=== PATIENT | female | born 2000 | race Caucasian/White ===

== ENCOUNTER 2024-08-22 10:10 | Emergency (ER) | payer OTHER, SELFPAY ==
[2024-08-22 10:26] VITALS: BP 149/94; PULSE 117; RESP 16; TEMP 36.5; O2SAT 100
--- OUTSIDE RECORDS SUMMARY | 2024-08-22 10:42 | XMS_ITS | Clinical Summary ---
Author Organization [facility] Address [address] [place] [address] Phone Care Team Providers Care Ostomy Nurse Name Role Phone TYSHAWN CROSS Primary Care Provider [phone] REYNA RONQUILLO MD Unavailable [phone] Reason for Visit and Chief Complaint The Chief Complaint is: WWE, no c/o, no new partners Problems Includes: Problems addressed during this encounter and other active Problems All Visits Onset Date Resolved Date Provider Condition S tatus Psoriasis 12/09/2020 MICHAEL CHRISTIANSON [facility]- Act linda Last Documented On 1 10:11AM ; [facility] Plan of Treatment - Clinical summary provided to patient - Last Documented On 12/12/2021 10:43AM ; [facility] Instructions to patient Instructions for patient : B reast Self Exam discussed Last Documented On 2 10:25AM ; [facility] Lose weight Last Documented On 2 10:25AM ; [facility] Gardasil information given a nd series encouraged Series completed! Last Documented On 2 10:25AM ; [facility] Safe sex counseling Last Documented On 2 10:25AM ; [facility] Education and Decision Aids were provided during visit for: Patient Education: Daily isidoro cium and vitamin D Last Documented On 2 10:25AM ; [facility] Patient Education: weight be aring exercise Last Documented On 2 10:25AM ; [facility] Assessments Includes: Assessments from this encounter Findings - NORMAL FEMALE EXAM [Z01.419 - Encounter for gynecological examination (general) (routine) without abnormal findings] - Last Documented On 12/12/2021 10:43AM ; [facility] Instructions Includes: Instructions from this encounter Instructions to patient Instructions for patient : B reast Self Exam discussed Last Documented On 2 10:25AM ; [facility] Lose weight Last Documented On 2 10:25AM ; [facility] Gardasil information given a nd series encouraged Series completed! Last Documented On 2 10:25AM ; [facility] Safe sex counseling Last Documented On 2 10:25AM ; [facility] Education and Decision Aids were provided during visit for: Patient Education: Daily isidoro cium and vitamin D Last Documented On 2 10:25AM ; [facility] Patient Education: weight be aring exercise Last Documented On 2 10:25AM ; [facility] Medical Equipment - Implanted Devices Includes: Current Devices No Medical Equipment Recorded Medications Includes: Medications discussed during this encounter and other current Medications New / Renewed during this visit MICHAEL KO on 12/12/2021 Seasonique 0.15-0.03 &0.01 MG Oral Tablet Provider: MICHAEL Ozuna 84 day supply: 84 tablet, 3 refills Diagnosis: One tablet daily Pharmacy: [facility] [address], [address] - Last Documented On 3 2:59PM By MICHAEL KO ; [facility] Current Medications (continue as prescribed) Seasonique 0.15-0.03 &0.01 MG Oral Tablet 01/02/2023 Provider: MICHAEL KO Diagnosis: One tablet daily Last Documented On 3 3:04PM By MICHAEL KO ; [facility] Past Medications on file Diflucan 150MG Oral Tablet 10/02/2016 - 10/03/2016 Pro vider: MICHAEL A CHRISTIANSON WHNP-BC Diagnosis: One tablet daily Last Documented On 7 2:48PM By MICHAEL JACKSON-BC ; [facility] Medications Administered Includes: Administered Medications from this encounter No Administered Medications Recorded Vital Signs Includes: Vital Signs from this encounter Vital Name 12/12/2021 10:26A Blood Pressure Sitting L 120/70 BP Cuff Size Regular Temp-Temporal 98.1 Height (in) 67 Weight (lb) 181 Body Mass Index (kg/m2) 28.3 Body Surface Area (m2) 1.9 Last Documented: On 12/12/2021 10:28A M ; [facility] Results Includes: Results discussed during this encounter No Results Recorded For Specified Dates History of Present Illness Includes: History of Present Illness from this encounter ERLIN LAZO is a 21 year old female. - Allergy list reviewed - Medication list reviewed - Primary Care Provider: Social History Description Last Updated Alcohol use 12/12/2021 Last Documented On 2 10:43AM ; [facility] In monogamous relationship 12/12/2021 Last Documented On 2 10:43AM ; [facility] Not using drugs 12/12/2021 Last Documented On 2 10:43AM ; [facility] Sexually active with 1 partners in the l ast year 12/12/2021 Last Documented On 2 10:43AM ; [facility] Smoking status : Never smoker 12/12/2021 Last Documented On 2 10:43AM ; [facility] Social history changed scott 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 12/12/2021 Last Documented On 2 10:43AM ; [facility] Procedures and Surgical History Includes: Procedures from this encounter Procedures Code Diagnosis Performing Provider Service L ocation Service Date low fat diet Last Documented On 2 10:25AM ; [facility] use of tobacco assessment performed 1000F Last Documented On 2 10:29AM ; [facility] review of medications documented 1160F Last Documented On 2 10:29AM ; [facility] history of cervical Pap smear 12/09/2020 [id number] Last Documented On 2 10:29AM ; [facility] test was negative Last Documented On 2 10:30AM ; [facility] Chlamydia trachomatis culture was perfor med Last Documented On 2 10:25AM ; [facility] Neisseria gonorrhea culture was performe d Last Documented On 2 10:25AM ; [facility] Cervical Pap Smear performed Q0091 Last Documented On 2 10:25AM ; [facility] Medical History Includes: Medical History addressed during this encounter Description Last Updated Contraception: Seasonique 12/12/2021 Last Documented On 2 10:43AM ; [facility] Last pap smear date 12/09/2020 12/12/2021 Last Documented On 2 10:43AM ; [facility] LMP: 11/12/2021 12/12/2021 Last Documented On 2 10:43AM ; [facility] History of cervical Pap smear 11/27/2019 12/12/2021 Last Documented On 2 10:43AM ; [facility] No recent change in medical history 11/27 Last Documented On 2 10:43AM ; [facility] Result: normal 12/12/2021 Last Documented On 2 10:43AM ; [facility] Sexually active 12/12/2021 Last Documented On 2 10:43AM ; [facility] Family History Includes: Family History addressed during this encounter No Family History Recorded Review of Systems Includes: Review of Systems from this encounter Gastrointestinal: No pelvic pain. Genitourinary: No menorrhagia. No dysmenorrhea and no bleeding between periods. No vaginal discharge. Mental Status Includes: Mental Status from this encounter No Mental Status Recorded Functional Status Includes: Functional Status from this encounter No Functional Status Recorded Physical Exam Includes: Physical Exam from this encounter Allergies Includes: Active Allergies No Known Allergies Encounters Encounter Provider Location Date Check-In Time Check-Out Time Diagnosis WELL WOMAN - ESTABLISHED PT MICHAEL CHRISTIANSON [facility] 12/13/19 22 10:23AM 10:44AM Normal Female Exam Insurance Includes: Active Insurance Policies Plan Name Member ID Group # Subscriber Relationship Effect linda Dates 1 - [facility] [id number] PATRICA LAZO Self Clinical Notes Includes: Clinical Notes from this encounter No Clinical Notes Recorded
--- OUTSIDE RECORDS SUMMARY | 2024-08-22 10:42 | XMS_ITS ---
Author Organization [facility] Address [address] [place] [address] Phone Care Team Providers Care Clerical Production Worker Name Role Phone TYSHAWN CROSS Primary Care Provider [phone] REYNA RONQUILLO MD Unavailable [phone] Problems Includes: Active, inactive, and resolved Problems All Visits Onset Date Resolved Date Provider Condition S tatus Psoriasis 12/09/2020 MICHAEL CHRISTIANSON NP-BC Act linda Last Documented On 1 10:11AM ; [facility] Plan of Treatment Findings Encounter Date Ordered Clinical summary pro vided to patient WELL WOMAN - ESTABLISHED PT with MICHAEL CHRISTIANSON WHNP-BC 01/02/2023 Last Documented On 3 3:00PM ; [facility] Ordered Clinical summary pro vided to patient WELL WOMAN - ESTABLISHED PT with MICHAELCOLLIN CHRISTIANSON WHNP-BC 12/12/2021 Last Documented On 2 10:43AM ; [facility] Ordered Clinical summary pro vided to patient WELL WOMAN - ESTABLISHED PT with MICHAELCOLLIN CHRISTIANSON WHNP-BC 12/09/2020 Last Documented On 1 10:11AM ; [facility] Ordered Clinical summary pro vided to patient CONVEYOR WEIGHER OPERATOR EXAM with MICHAEL CHRISTIANSON WHNP-BC 11/27/2019 Last Documented On 0 8:14AM ; [facility] Ordered Clinical summary pro vided to patient CONVEYOR WEIGHER OPERATOR EXAM with MICHAEL CHRISTIANSON NP- 11/25/2018 Last Documented On 9 10:31AM ; [facility] Ordered Clinical summary pro vided to patient CONVEYOR WEIGHER OPERATOR EXAM with MICHAEL CHRISTIANSON NP-BC 10/08/2017 Last Documented On 8 3:42PM ; [facility] Ordered Clinical summary pro vided to patient PELVIC EXAM with MICHAEL CHRISTIANSON NP-BC 01/08/2017 Last Documented On 7 3:46PM ; [facility] ER/pain precautions reviewed NEW CONVEYOR WEIGHER OPERATOR EXAM with Laith CHRISTIANSON NP- 10/02/2016 Last Documented On 7 2:37PM ; [facility] Ordered Clinical summary pro vided to patient NEW CONVEYOR WEIGHER OPERATOR EXAM with MICHAEL CHRISTIANSON NP- 10/02/2016 Last Documented On 7 2:37PM ; [facility] Instructions to patient Instructions for patient : B reast Self Exam discussed Last Documented On 3 2:40PM ; [facility] Lose weight Last Documented On 3 2:41PM ; [facility] Gardasil information given a nd series encouraged Series completed! Last Documented On 3 2:41PM ; [facility] Safe sex counseling Last Documented On 3 2:41PM ; [facility] Instructions for patient : B reast Self Exam discussed Last Documented On 2 10:25AM ; [facility] Lose weight Last Documented On 2 10:25AM ; [facility] Gardasil information given a nd series encouraged Series completed! Last Documented On 2 10:25AM ; [facility] Safe sex counseling Last Documented On 2 10:25AM ; [facility] Instructions for patient : B reast Self Exam discussed Last Documented On 1 9:58AM ; [facility] Lose weight Last Documented On 1 9:59AM ; [facility] Gardasil information given a nd series encouraged Series completed! Last Documented On 1 9:59AM ; [facility] Safe sex counseling Last Documented On 1 9:59AM ; [facility] Instructions for patient : B reast Self Exam discussed Last Documented On 0 7:57AM ; [facility] Gardasil information given a nd series encouraged Series completed! Last Documented On 0 7:58AM ; [facility] Safe sex counseling Last Documented On 0 7:58AM ; [facility] Instructions for patient : B reast Self Exam discussed Last Documented On 9 10:24AM ; [facility] Lose weight Last Documented On 9 10:25AM ; [facility] Gardasil information given a nd series encouraged Series completed! Last Documented On 9 10:25AM ; [facility] Safe sex counseling Last Documented On 9 10:25AM ; [facility] Instructions for patient : B reast Self Exam discussed Last Documented On 8 3:32PM ; [facility] Gardasil information given a nd series encouraged Series completed with peds! Last Documented On 8 3:42PM ; [facility] Safe sex counseling Last Documented On 8 3:33PM ; [facility] Safe sex counseling Last Documented On 7 3:45PM ; [facility] Instructions for patient : B reast Self Exam discussed Last Documented On 7 12:43PM ; [facility] Instructions for patient ER if bleeding through reg. sized pad/tampon < 1 hour Last Documented On 7 12:50PM ; [facility] Instructions for patient : p atient is to keep a menstrual diary to help with further evaluation and treatment Last Documented On 7 12:50PM ; [facility] Instructions for patient ER if dizzy, vomiting or light-headed due to heavy bleeding Last Documented On 7 12:50PM ; [facility] Gardasil information given a nd series encouraged Last Documented On 7 12:44PM ; [facility] Safe sex counseling Last Documented On 7 12:44PM ; [facility] Education and Decision Aids were provided during visit for: Patient Education: Daily isidoro cium and vitamin D Last Documented On 3 2:40PM ; [facility] Patient Education: weight be aring exercise Last Documented On 3 2:40PM ; [facility] Patient Education: Daily isidoro cium and vitamin D Last Documented On 2 10:25AM ; [facility] Patient Education: weight be aring exercise Last Documented On 2 10:25AM ; [facility] Patient Education: Daily isidoro cium and vitamin D Last Documented On 1 9:58AM ; [facility] Patient Education: weight be aring exercise Last Documented On 1 9:58AM ; [facility] Patient Education: Daily isidoro cium and vitamin D Last Documented On 0 7:57AM ; [facility] Patient Education: weight be aring exercise Last Documented On 0 7:57AM ; [facility] Patient Education: Daily isidoro cium and vitamin D Last Documented On 9 10:24AM ; [facility] Patient Education: weight be aring exercise Last Documented On 9 10:24AM ; [facility] Patient Education: Daily isidoro cium and vitamin D Last Documented On 8 3:32PM ; [facility] Patient Education: weight be aring exercise Last Documented On 8 3:32PM ; [facility] Patient counseling : Use of oral contraceptives discussed in detail including rare occurrence of heart attack, stroke, and leg clots. Patient understands that smoking increases the risk of serious side effects with any steroid-based contraceptive method Last Documented On 7 3:46PM ; [facility] Patient Education: Daily isidoro cium and vitamin D Last Documented On 7 12:43PM ; [facility] Patient Education: weight be aring exercise Last Documented On 7 12:43PM ; [facility] Candidiasis Vulvovaginitis I nformation Sheet Given Last Documented On 7 2:36PM ; [facility] control consent review ed and signed Last Documented On 7 1:14PM ; [facility] Assessments Includes: Assessments for all patient encounters Findings Encounter Date NORMAL FEMALE EXAM WELL WOMAN - ESTABLISHED PT w jose elias CHRISTIANSON [facility] 01/02/2023 Last Documented On 3 3:00PM ; [facility] NORMAL FEMALE EXAM WELL WOMAN - ESTABLISHED PT w ith MICHAEL CHRISTIANSON [facility] 12/12/2021 Last Documented On 2 10:43AM ; [facility] NORMAL FEMALE EXAM WELL WOMAN - ESTABLISHED PT w ith MICHAEL CHRISTIANSON [facility] 12/09/2020 Last Documented On 1 10:11AM ; [facility] NORMAL FEMALE EXAM CONVEYOR WEIGHER OPERATOR EXAM with MICHAEL Garcia [facility] 11/27/2019 Last Documented On 0 8:14AM ; [facility] NORMAL FEMALE EXAM CONVEYOR WEIGHER OPERATOR EXAM with MICHAEL Garcia [facility] 11/25/2018 Last Documented On 9 10:31AM ; [facility] NORMAL FEMALE EXAM CONVEYOR WEIGHER OPERATOR EXAM with MICHAEL Garcia [facility] 10/08/2017 Last Documented On 8 3:42PM ; [facility] Menorrhagia NEW CONVEYOR WEIGHER OPERATOR EXAM with MICHAEL CHRISTIANSON [facility] 10/02/2016 Last Documented On 7 2:37PM ; [facility] NORMAL FEMALE EXAM NEW CONVEYOR WEIGHER OPERATOR EXAM with MICHAEL SAUER [facility]- 10/02/2016 Last Documented On 7 2:37PM ; [facility] Instructions Includes: Instructions for all patient encounters Instructions to patient Instructions for patient : B reast Self Exam discussed Last Documented On 3 2:40PM ; [facility] Lose weight Last Documented On 3 2:41PM ; [facility] Gardasil information given a nd series encouraged Series completed! Last Documented On 3 2:41PM ; [facility] Safe sex counseling Last Documented On 3 2:41PM ; [facility] Instructions for patient : B reast Self Exam discussed Last Documented On 2 10:25AM ; [facility] Lose weight Last Documented On 2 10:25AM ; [facility] Gardasil information given a nd series encouraged Series completed! Last Documented On 2 10:25AM ; [facility] Safe sex counseling Last Documented On 2 10:25AM ; [facility] Instructions for patient : B reast Self Exam discussed Last Documented On 1 9:58AM ; [facility] Lose weight Last Documented On 1 9:59AM ; [facility] Gardasil information given a nd series encouraged Series completed! Last Documented On 1 9:59AM ; [facility] Safe sex counseling Last Documented On 1 9:59AM ; [facility] Instructions for patient : B reast Self Exam discussed Last Documented On 0 7:57AM ; [facility] Gardasil information given a nd series encouraged Series completed! Last Documented On 0 7:58AM ; [facility] Safe sex counseling Last Documented On 0 7:58AM ; [facility] Instructions for patient : B reast Self Exam discussed Last Documented On 9 10:24AM ; [facility] Lose weight Last Documented On 9 10:25AM ; [facility] Gardasil information given a nd series encouraged Series completed! Last Documented On 9 10:25AM ; [facility] Safe sex counseling Last Documented On 9 10:25AM ; [facility] Instructions for patient : B reast Self Exam discussed Last Documented On 8 3:32PM ; [facility] Gardasil information given a nd series encouraged Series completed with peds! Last Documented On 8 3:42PM ; [facility] Safe sex counseling Last Documented On 8 3:33PM ; [facility] Safe sex counseling Last Documented On 7 3:45PM ; [facility] Instructions for patient : B reast Self Exam discussed Last Documented On 7 12:43PM ; [facility] Instructions for patient ER if bleeding through reg. sized pad/tampon < 1 hour Last Documented On 7 12:50PM ; [facility] Instructions for patient : p atient is to keep a menstrual diary to help with further evaluation and treatment Last Documented On 7 12:50PM ; [facility] Instructions for patient ER if dizzy, vomiting or light-headed due to heavy bleeding Last Documented On 7 12:50PM ; [facility] Gardasil information given a nd series encouraged Last Documented On 7 12:44PM ; [facility] Safe sex counseling Last Documented On 7 12:44PM ; [facility] Education and Decision Aids were provided during visit for: Patient Education: Daily isidoro cium and vitamin D Last Documented On 3 2:40PM ; [facility] Patient Education: weight be aring exercise Last Documented On 3 2:40PM ; [facility] Patient Education: Daily isidoro cium and vitamin D Last Documented On 2 10:25AM ; [facility] Patient Education: weight be aring exercise Last Documented On 2 10:25AM ; [facility] Patient Education: Daily isidoro cium and vitamin D Last Documented On 1 9:58AM ; [facility] Patient Education: weight be aring exercise Last Documented On 1 9:58AM ; [facility] Patient Education: Daily isidoro cium and vitamin D Last Documented On 0 7:57AM ; [facility] Patient Education: weight be aring exercise Last Documented On 0 7:57AM ; [facility] Patient Education: Daily isidoro cium and vitamin D Last Documented On 9 10:24AM ; [facility] Patient Education: weight be aring exercise Last Documented On 9 10:24AM ; [facility] Patient Education: Daily isidoro cium and vitamin D Last Documented On 8 3:32PM ; [facility] Patient Education: weight be aring exercise Last Documented On 8 3:32PM ; [facility] Patient counseling : Use of oral contraceptives discussed in detail including rare occurrence of heart attack, stroke, and leg clots. Patient understands that smoking increases the risk of serious side effects with any steroid-based contraceptive method Last Documented On 7 3:46PM ; [facility] Patient Education: Daily isidoro cium and vitamin D Last Documented On 7 12:43PM ; [facility] Patient Education: weight be aring exercise Last Documented On 7 12:43PM ; [facility] Candidiasis Vulvovaginitis I nformation Sheet Given Last Documented On 7 2:36PM ; [facility] control consent review ed and signed Last Documented On 7 1:14PM ; [facility] Medical Equipment - Implanted Devices Includes: Current and historical Devices No Medical Equipment Recorded Medications Includes: Current and historical Medications Current Medications (continue as prescribed) Seasonique 0.15-0.03 &0.01 MG Oral Tablet 01/02/2023 Provider: MICHAEL RUGGIEROBC Diagnosis: One tablet daily Last Documented On 3 3:04PM By MICHAEL KO ; [facility] Past Medications on file Seasonique 0.15-0.03 &0.01 M G Oral Tablet 12/12/2021 - 01/02/2023 Provider: MICHAEL CHRISTIANSON ROOFING MACHINE TENDER-BC Diagnosis: One tablet daily Last Documented On 3 2:59PM By MICHAEL KO ; [facility] Aviane 0.1-20 MG-MCG Oral Tablet 12/09/2020 - 12/09/2020 Provider: MICHAEL CHRISTIANSON ROOFING MACHINE TENDER-BC Diagnosis: One tablet daily Last Documented On 1 10:09AM By MICHAEL KO ; [facility] Seasonique 0.15-0.03 &0.01 M G Oral Tablet 12/09/2020 - 12/12/2021 Provider: MICHAEL DAVIS ROOFING MACHINE TENDER-BC Diagnosis: One tablet daily Last Documented On 2 10:42AM By MICHAEL KO ; [facility] Aviane 0.1-20 MG-MCG Oral Tablet 11/27/2019 - 12/09/2020 Provider: MICHAEL DAVIS ROOFING MACHINE TENDER-BC Diagnosis: One tablet daily Last Documented On 1 10:00AM By MICHAEL KO ; [facility] Aviane 0.1-20MG-MCG Oral Tablet 11/25/2018 - 11/27/2019 Provider: MICHAEL DAVIS ROOFING MACHINE TENDER-BC Diagnosis: One tablet daily Last Documented On 0 8:06AM By MICHAEL KO ; [facility] Aviane 0.1-20MG-MCG Oral Tablet 10/18/2018 - 11/25/2018 Provider: MICHAEL SIDHU Diagnosis: One tablet daily Last Documented On 9 10:30AM By MICHAEL KO ; [facility] Aviane 0.1-20MG-MCG Oral Tablet 10/08/2017 - 10/18/2018 Provider: MICHAEL DAVIS NP-BC Diagnosis: One tablet daily Last Documented On 9 12:19PM By MICHAEL KO ; [facility] Aviane 0.1-20MG-MCG Oral Tablet 01/08/2017 - 10/08/2017 Provider: MICHAEL DAVIS NP-JENS Diagnosis: One tablet daily Last Documented On 8 3:42PM By MICHAEL KO ; [facility] Diflucan 150MG Oral Tablet 10/02/2016 - 10/03/2016 Pro vider: MICHAEL KO Diagnosis: One tablet daily Last Documented On 7 2:48PM By MICHAEL KO ; [facility] Aviane 0.1-20MG-MCG Oral Tablet 10/02/2016 - 01/08/2017 Provider: MICHAEL SIDHU Diagnosis: One tablet daily Last Documented On 7 3:47PM By MICHAEL KO ; [facility] Medications Administered Includes: Administered Medications in patient's chart No Administered Medications Recorded Results Includes: Results from 08/22/2023 through 08/22/2024 No Results Recorded For Specified Dates History of Present Illness History of Present Illness not supported for this document type No History of Present Illness Recorded Social History Description Last Updated 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 Seasoni que 01/02/2023 Last Documented On 3 3:00PM ; [facility] Non-smoker 11/27/2019 Last Documented On 0 8:14AM ; [facility] Smoking Status Unknown Medical History Includes: Medical History in patient's chart Description Last Updated Contraception: Seasonique 12/12/2021 Last Documented On 2 10:43AM ; [facility] Sexually active 12/12/2021 Last Documented On 2 10:43AM ; [facility] Family History Includes: Family History in patient's chart No Family History Recorded Review of Systems Review of Systems not supported for this document type No Review of Systems Recorded Mental Status No Mental Status Recorded Functional Status No Functional Status Recorded Physical Exam Physical Exam not supported for this document type No Physical Exam Recorded Allergies Includes: Active, inactive, and resolved Allergies No Known Allergies Insurance Includes: Active Insurance Policies Plan Name Member ID Group # Subscriber Relationship Effect linda Dates 1 - [facility] [id number] PATRICA LAZO Self Clinical Notes Includes: Signed Clinical Notes starting from 08/18/2022 No Clinical Notes Recorded
--- OUTSIDE RECORDS SUMMARY | 2024-08-22 10:42 | XMS_ITS ---
Care Plan - [facility] Created on: August 22, 2024 PATRICA LAZO : 2000 Sex: Female Author Organization [facility] Address [address] [place] [address] Phone Care Team Providers Care Network Project Manager Name Role Phone TYSHAWN CROSS Primary Care Provider [phone] REYNA RONQUILLO MD Unavailable [phone]
--- OUTSIDE RECORDS SUMMARY | 2024-08-22 10:42 | XMS_ITS | Clinical Summary ---
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 Problems Includes: Problems addressed during this encounter and other active Problems All Visits Onset Date Resolved Date Provider Condition S tatus Psoriasis 12/09/2020 MICHAEL KO Act linda Last Documented On 1 10:11AM ; [facility] Plan of Treatment No Plan of Treatment Recorded Assessments Includes: Assessments from this encounter No Assessments Recorded Medical Equipment - Implanted Devices Includes: Current Devices No Medical Equipment Recorded Medications Includes: Medications discussed during this encounter and other current Medications Current Medications (continue as prescribed) Seasonique 0.15-0.03 &0.01 MG Oral Tablet 01/02/2023 Provider: MICHAEL KO Diagnosis: One tablet daily Last Documented On 3 3:04PM By MICHAEL KO ; [facility] Medications Administered Includes: Administered Medications from this encounter No Administered Medications Recorded Results Includes: Results discussed during this encounter No Results Recorded For Specified Dates History of Present Illness Includes: History of Present Illness from this encounter No History of Present Illness Recorded Social History No Social History Recorded - Smoking Status Unknown Medical History Includes: Medical History addressed during this encounter No Medical History Recorded Family History Includes: Family History addressed during this encounter No Family History Recorded Review of Systems Includes: Review of Systems from this encounter No Review of Systems Recorded Mental Status Includes: Mental Status from this encounter No Mental Status Recorded Functional Status Includes: Functional Status from this encounter No Functional Status Recorded Physical Exam Includes: Physical Exam from this encounter No Physical Exam Recorded Allergies Includes: Active Allergies No Known Allergies Insurance Includes: Active Insurance Policies Plan Name Member ID Group # Subscriber Relationship Effect linda Dates 1 - [facility] [id number] PATRICA LAZO Self Clinical Notes Includes: Clinical Notes from this encounter No Clinical Notes Recorded
--- OUTSIDE RECORDS SUMMARY | 2024-08-22 10:42 | XMS_ITS | Clinical Summary ---
Author Organization [facility] Address [address] [place] [address] Phone Care Team Providers Care Band Tumbler Name Role Phone TYSHAWN CROSS Primary Care Provider [phone] REYNA RONQUILLO MD Unavailable [phone] Reason for Visit and Chief Complaint The Chief Complaint is: WWE, would like to talk about switching control. her pills are not helping with her cramps but cycles are regular. No new partners Problems Includes: Problems addressed during this encounter and other active Problems Current Visit Onset Date Resolved Date Provider Hank n Status Psoriasis 12/09/2020 MICHAEL [facility]SON [facility]- Act linda Last Documented On 1 10:11AM ; [facility] Plan of Treatment - Clinical summary provided to patient - Last Documented On 12/09/2020 10:11AM ; [facility] Instructions to patient Instructions for patient : B reast Self Exam discussed Last Documented On 1 9:58AM ; [facility] Lose weight Last Documented On 1 9:59AM ; [facility] Gardasil information given a nd series encouraged Series completed! Last Documented On 1 9:59AM ; [facility] Safe sex counseling Last Documented On 1 9:59AM ; [facility] Education and Decision Aids were provided during visit for: Patient Education: Daily isidoro cium and vitamin D Last Documented On 1 9:58AM ; [facility] Patient Education: weight be aring exercise Last Documented On 1 9:58AM ; [facility] Assessments Includes: Assessments from this encounter Findings - NORMAL FEMALE EXAM [Z01.419 - Encounter for gynecological examination (general) (routine) without abnormal findings] - Last Documented On 12/09/2020 10:11AM ; [facility] Instructions Includes: Instructions from this encounter Instructions to patient Instructions for patient : B reast Self Exam discussed Last Documented On 1 9:58AM ; [facility] Lose weight Last Documented On 1 9:59AM ; [facility] Gardasil information given a nd series encouraged Series completed! Last Documented On 1 9:59AM ; [facility] Safe sex counseling Last Documented On 9:59AM ; [facility] Education and Decision Aids were provided during visit for: Patient Education: Daily isidoro cium and vitamin D Last Documented On 1 9:58AM ; [facility] Patient Education: weight be aring exercise Last Documented On 9:58AM ; [facility] Medical Equipment - Implanted Devices Includes: Current Devices No Medical Equipment Recorded Medications Includes: Medications discussed during this encounter and other current Medications Discontinued / Stopped on this date MICHAEL KO on 12/09/2020 Aviane 0.1-20 MG-MCG Oral Tablet Provider : MICHAEL KO Diagnosis: Last Documented On 1 10:09AM By MICHAEL KO ; [facility] New / Renewed during this visit MICHAEL KO on 12/09/2020 Seasonique 0.15-0.03 &0.01 MG Oral Tablet Provider: MICHAEL Ozuna 84 day supply: 84 tablet, 3 refills Diagnosis: One tablet daily Pharmacy: [facility] [address], [address] - Last Documented On 2 10:42AM By MICHAEL KO ; [facility] Current Medications (continue as prescribed) Seasonique 0.15-0.03 &0.01 MG Oral Tablet 01/02/2023 Provider: MICHAEL KO Diagnosis: One tablet daily Last Documented On 3 3:04PM By MICHAEL KO ; [facility] Past Medications on file Diflucan 150MG Oral Tablet 10/02/2016 - 10/03/2016 Pro vider: MICHAEL KO Diagnosis: One tablet daily Last Documented On 7 2:48PM By MICHAEL KO ; [facility] Medications Administered Includes: Administered Medications from this encounter No Administered Medications Recorded Vital Signs Includes: Vital Signs from this encounter Vital Name 12/09/2020 09:57A Blood Pressure Sitting L 122/76 BP Cuff Size Regular Temp-Oral (F) 98.1 Height (in) 67 Weight (lb) 177 Body Mass Index (kg/m2) 27.7 Body Surface Area (m2) 1.9 Last Documented: On 12/09/2020 10:00A M ; [facility] Results Includes: Results discussed during this encounter No Results Recorded For Specified Dates History of Present Illness Includes: History of Present Illness from this encounter ERLIN LAZO is a 20 year old female. 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 12/09/2020 Last Documented On 1 10:11AM ; [facility] Alcohol use 12/09/2020 Last Documented On 1 10:11AM ; [facility] In monogamous relationship 12/09/2020 Last Documented On 1 10:11AM ; [facility] Not using drugs 12/09/2020 Last Documented On 1 10:11AM ; [facility] Sexually active with 1 partners in the l ast year 12/09/2020 Last Documented On 1 10:11AM ; [facility] Smoking status : Never smoker 12/09/2020 Last Documented On 1 10:11AM ; [facility] Procedures and Surgical History Includes: Procedures from this encounter Procedures Code Diagnosis Performing Provider Service L ocation Service Date low fat diet Last Documented On 1 9:59AM ; [facility] use of tobacco assessment performed 1000F Last Documented On 1 10:01AM ; [facility] review of medications documented 1160F Last Documented On 1 10:01AM ; [facility] Chlamydia trachomatis culture was perfor med Last Documented On 1 9:59AM ; [facility] Neisseria gonorrhea culture was performe d Last Documented On 1 9:59AM ; [facility] Cervical Pap Smear performed Q0091 Last Documented On 1 9:59AM ; [facility] Medical History Includes: Medical History addressed during this encounter Description Last Updated Contraception: Aviane 12/09/2020 Last Documented On 1 10:11AM ; [facility] Last pap smear date 11/27/2019 12/09/2020 Last Documented On 1 10:11AM ; [facility] History of cervical Pap smear 11/27/2019 12/09/2020 Last Documented On 1 10:11AM ; [facility] LMP: 11/24/2020 12/09/2020 Last Documented On 1 10:11AM ; [facility] History of Pap smear done 11/25/201811/27 Last Documented On 1 10:11AM ; [facility] No recent change in medical history 11/27 Last Documented On 1 10:11AM ; [facility] Result: normal 12/09/2020 Last Documented On 1 10:11AM ; [facility] Sexually active 12/09/2020 Last Documented On 1 10:11AM ; [facility] Family History Includes: Family History addressed during [...] 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
--- OUTSIDE RECORDS SUMMARY | 2024-08-22 10:42 | XMS_ITS | Clinical Summary ---
Author Organization [facility] Address [address] [place] [address] Phone Care Team Providers Care Certified Pedorthotist Name Role Phone TYSHAWN CROSS Primary Care Provider [phone] REYNA RONQUILLO MD Unavailable [phone] Reason for Visit and Chief Complaint gynecologic annual exam - The Chief Complaint is: Annual Problems Includes: Problems addressed during this encounter and other active Problems All Visits Onset Date Resolved Date Provider Condition S tatus Psoriasis 12/09/2020 MICHAEL CHRISTIANSON [facility]- Act linda Last Documented On 1 10:11AM ; [facility] Plan of Treatment - Clinical summary provided to patient - Last Documented On 11/27/2019 8:14AM ; [facility] Per new ASCCP guidelines, pap was deferred today. This was d/w pt. and pt. is agreeable to this plan. - Last Documented On 11/27/2019 8:14AM ; [facility] Instructions to patient Instructions for patient : B reast Self Exam discussed Last Documented On 0 7:57AM ; [facility] Gardasil information given a nd series encouraged Series completed! Last Documented On 0 7:58AM ; [facility] Safe sex counseling Last Documented On 0 7:58AM ; [facility] Education and Decision Aids were provided during visit for: Patient Education: Daily isidoro cium and vitamin D Last Documented On 0 7:57AM ; [facility] Patient Education: weight be aring exercise Last Documented On 0 7:57AM ; [facility] Assessments Includes: Assessments from this encounter Findings - NORMAL FEMALE EXAM - Last Documented On 11/27/2019 8:14AM ; [facility] Instructions Includes: Instructions from this encounter Instructions to patient Instructions for patient : B reast Self Exam discussed Last Documented On 0 7:57AM ; [facility] Gardasil information given a nd series encouraged Series completed! Last Documented On 0 7:58AM ; [facility] Safe sex counseling Last Documented On 0 7:58AM ; [facility] Education and Decision Aids were provided during visit for: Patient Education: Daily isidoro cium and vitamin D Last Documented On 0 7:57AM ; [facility] Patient Education: weight be aring exercise Last Documented On 0 7:57AM ; [facility] Medical Equipment - Implanted Devices Includes: Current Devices No Medical Equipment Recorded Medications Includes: Medications discussed during this encounter and other current Medications New / Renewed during this visit MICHAEL KO on 11/27/2019 Aviane 0.1-20 MG-MCG Oral Tablet Provider: MICHAEL Ozuna 30 day supply: 30 tablet, 11 refills Diagnosis: One tablet daily Pharmacy: [facility] [address], [address] - Last Documented On 1 10:00AM By MICHAEL KO ; [facility] Current Medications (continue as prescribed) Seasonique 0.15-0.03 &0.01 MG Oral Tablet 01/02/2023 Provider: MICHAEL KO Diagnosis: One tablet daily Last Documented On 3 3:04PM By MICHAEL KO ; [facility] Past Medications on file Diflucan 150MG Oral Tablet 10/02/2016 - 10/03/2016 Pro vider: MICHAEL KO Diagnosis: One tablet daily Last Documented On 7 2:48PM By MICHAEL KO ; [facility] Medications Administered Includes: Administered Medications from this encounter No Administered Medications Recorded Vital Signs Includes: Vital Signs from this encounter Vital Name 11/27/2019 08:03A Blood Pressure Sitting L 110/60 BP Cuff Size Regular Temp-Oral (F) 98.2 Height (in) 67 Weight (lb) 166 Body Mass Index (kg/m2) 26.0 Body Surface Area (m2) 1.9 Last Documented: On 11/27/2019 8:05AM ; [facility] Results Includes: Results discussed during this encounter THINPREP TIS PAP REFLEX HPV mRNA E6/E7 Q [employer] Ordered by REYNA RONQUILLO MD on 11/26/19 Collected: 11/25/2018 Reported: 11/29/19 19 10:15 Last Documented On 9 2:37PM ; [facility] Reviewed by REYNA Lopez on 11/28/2018; All test results are final unless otherwise noted. COMMENT See Note None Last Documented On 11/28/2018 2:37PM ; [facility] Note: EXPLANATORY NOTE: The Pap is a screening test for cervical cancer. It is not a diagnostic test and is subject to false negative and false positive results. It is most reliable when a satisfactory sample, regularly obtained, is submitted with relevant clinical findings and history, and when the Pap result is evaluated along with historic and current clinical information. SOURCE: Cervix, Endocervix N (Normal) Last Documented On 9 2:37PM ; [facility] CLINICAL INFORMATION: Routine exam N (Normal) Last Documented On 9 2:37PM ; [facility] LMP: 4-13-19 N (Normal) Last Documented On 9 2:37PM ; [facility] PREV. PAP: NONE N (Normal) Last Documented On 9 2:37PM ; [facility] PREV. BX: NONE N (Normal) Last Documented On 9 2:37PM ; [facility] STATEMENT OF ADEQUACY: Satisfactory for evaluation. Endocervical/transformation zone component present. N (Normal) Last Documented On 9 2:37PM ; [facility] INTERPRETATION/RESULT: Negative for intraepithelial lesion or malignancy. N (Normal) Last Documented On 9 2:37PM ; [facility] COMMENT: This Pap test has been evaluated with computer assisted technology. N (Normal) Last Documented On 9 2:37PM ; [facility] GROUP HOME SUPERVISOR: WILFRIDO JOHNSON(ASCP) CT screening location: [place] [address] [place] [address] N (Normal) Last Documented On 9 2:37PM ; [facility] History of Present Illness Includes: History of Present Illness from this encounter HPI PATRICA LAZO is a 19 year old female. - Allergy list reviewed - Medication list reviewed - PRIMARY CARE PROVIDER : Reyna Johnson - Medication reconciliation performed Social History Description Last Updated Alcohol use 11/27/2019 Last Documented On 0 8:14AM ; [facility] In monogamous relationship 11/27/2019 Last Documented On 0 8:14AM ; [facility] Non-smoker 11/27/2019 Last Documented On 0 8:14AM ; [facility] Not using drugs 11/27/2019 Last Documented On 0 8:14AM ; [facility] Sexually active with 1 partners in the l ast year 11/27/2019 Last Documented On 0 8:14AM ; [facility] Social history changed pt currently work ing at [employer] 11/27/2019 Last Documented On 0 8:14AM ; [facility] Smoking status : Never smoker 11/27/2019 Last Documented On 0 8:14AM ; [facility] Procedures and Surgical History Includes: Procedures from this encounter Procedures Code Diagnosis Performing Provider Service L ocation Service Date low fat diet Last Documented On 0 7:58AM ; [facility] Chlamydia trachomatis culture was perfor med Last Documented On 0 8:08AM ; [facility] Neisseria gonorrhea culture was performe d Last Documented On 0 8:08AM ; [facility] Cervical Pap Smear performed Q0091 Last Documented On 0 8:08AM ; [facility] Medical History Includes: Medical History addressed during this encounter Description Last Updated No recent change in medical history 10/30 Last Documented On 0 8:14AM ; [facility] LMP: 11/11/2019 11/27/2019 Last Documented On 0 8:14AM ; [facility] Sexually active 11/27/2019 Last Documented On 0 8:14AM ; [facility] Contraception: avaine 11/27/2019 Last Documented On 0 8:14AM ; [facility] History of Pap smear done 11/25/201810/30 Last Documented On 0 8:14AM ; [facility] Result: normal 11/27/2019 Last Documented On 0 8:14AM ; [facility] Family History Includes: Family History addressed during this encounter Description Last Updated Family history unchanged 11/27/2019 Last Documented On 0 8:14AM ; [facility] Review of Systems Includes: Review of Systems [...] Location Date Check-In Time Check-Out Time Diagnosis [employer] 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
--- OUTSIDE RECORDS SUMMARY | 2024-08-22 10:43 | XMS_ITS | Clinical Summary ---
Author Organization [facility] Address [address] [place] [address] Phone Care Team Providers Care Diving Board Assembler Name Role Phone TYSHAWN CROSS Primary Care Provider [phone] REYNA RONQUILLO MD Unavailable [phone] Reason for Visit and Chief Complaint The Chief Complaint is: WWE. No concerns today. No new sexual partners Problems Includes: Problems addressed during this encounter and other active Problems All Visits Onset Date Resolved Date Provider Condition S tatus Psoriasis 12/09/2020 MICHAEL [facility] Act linda Last Documented On 1 10:11AM ; [facility] Plan of Treatment - Clinical summary provided to patient - Last Documented On 01/02/2023 3:00PM ; [facility] Instructions to patient Instructions for patient : B reast Self Exam discussed Last Documented On 3 2:40PM ; [facility] Lose weight Last Documented On 3 2:41PM ; [facility] Gardasil information given a nd series encouraged Series completed! Last Documented On 3 2:41PM ; [facility] Safe sex counseling Last Documented On 3 2:41PM ; [facility] Education and Decision Aids were provided during visit for: Patient Education: Daily isidoro cium and vitamin D Last Documented On 3 2:40PM ; [facility] Patient Education: weight be aring exercise Last Documented On 3 2:40PM ; [facility] Assessments Includes: Assessments from this encounter Findings - NORMAL FEMALE EXAM [Z01.419 - Encounter for gynecological examination (general) (routine) without abnormal findings] - Last Documented On 01/02/2023 3:00PM ; [facility] Instructions Includes: Instructions from this encounter Instructions to patient Instructions for patient : B reast Self Exam discussed Last Documented On 3 2:40PM ; [facility] Lose weight Last Documented On 3 2:41PM ; [facility] Gardasil information given a nd series encouraged Series completed! Last Documented On 3 2:41PM ; [facility] Safe sex counseling Last Documented On 3 2:41PM ; [facility] Education and Decision Aids were provided during visit for: Patient Education: Daily isidoro cium and vitamin D Last Documented On 3 2:40PM ; [facility] Patient Education: weight be aring exercise Last Documented On 3 2:40PM ; [facility] Medical Equipment - Implanted Devices Includes: Current Devices No Medical Equipment Recorded Medications Includes: Medications discussed during this encounter and other current Medications New / Renewed during this visit MICHAEL KO on 01/02/2023 Seasonique 0.15-0.03 &0.01 MG Oral Tablet Provider: MICHAEL Ozuna 84 day supply: 84 tablet, 3 refills Diagnosis: One tablet daily Pharmacy: [facility], [address] - Last Documented On 3 3:04PM By MICHAEL KO ; [facility] Past Medications on file Diflucan 150MG Oral Tablet 10/02/2016 - 10/03/2016 Pro vider: MICHAEL KO Diagnosis: One tablet daily Last Documented On 7 2:48PM By MICHAEL KO ; [facility] Medications Administered Includes: Administered Medications from this encounter No Administered Medications Recorded Vital Signs Includes: Vital Signs from this encounter Vital Name 01/02/2023 02:45P Blood Pressure Sitting L 122/84 BP Cuff Size Large Temp-Temporal 97.9 Height (in) 67 Weight (lb) 202 Body Mass Index 31.6 Body Surface Area 2 Last Documented: On 01/02/2023 2:46PM ; [facility] Results Includes: Results discussed during this encounter No Results Recorded For Specified Dates History of Present Illness Includes: History of Present Illness from this encounter HPI PATRICA LAZO is a 22 year old female. - Allergy list reviewed - Medication list reviewed - Primary Care Provider: Katarina Ross Social History Description Last Updated Alcohol use occ 01/02/2023 Last Documented On 3 3:00PM ; [facility] Tobacco non-user 01/02/2023 Last Documented On 3 3:00PM ; [facility] 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 Seasoni que 01/02/2023 Last Documented On 3 3:00PM ; [facility] Not using drugs 12/12/2021 Last Documented On 3 2:39PM ; [facility] Non-smoker 11/27/2019 Last Documented On 3 2:39PM ; [facility] Smoking Status Unknown Procedures and Surgical History Includes: Procedures from this encounter Procedures Code Diagnosis Performing Provider Service L ocation Service Date low fat diet Last Documented On 3 2:41PM ; [facility] use of tobacco assessment performed 1000F Last Documented On 3 2:40PM ; [facility] review of medications documented 1160F Last Documented On 3 2:40PM ; [facility] history of cervical Pap smear 12/12/2021 [id number] Last Documented On 3 2:40PM ; [facility] Cervical Pap Smear performed Q0091 Last Documented On 3 2:41PM ; [facility] Medical History Includes: Medical History addressed during this encounter Description Last Updated LMP: 12/03/2022 01/02/2023 Last Documented On 3 3:00PM ; [facility] Last pap smear date 12/12/2021 01/02/2023 Last Documented On 3 3:00PM ; [facility] Contraception: Seasonique 12/12/2021 Last Documented On 3 2:39PM ; [facility] Sexually active 12/12/2021 Last Documented On 3 2:39PM ; [facility] Family History Includes: Family History addressed during this encounter Description Last Updated Mom- Hysterectomy for menorrhagia 2022 Last Documented On 3 2:48PM ; [facility] Family history reviewed - unchanged sinc e last visit 01/02/2023 Last Documented On 3 3:00PM ; [facility] Review of Systems Includes: Review of Systems [...] [facility] 01/03/20 23 2:40PM 3:01PM Normal Female Exam Insurance Includes: Active Insurance Policies Plan Name Member ID Group # Subscriber Relationship Effect linda Dates 1 - [facility] [id number] PATRICA LAZO Self Clinical Notes Includes: Clinical Notes from this encounter * Progress note Date Encounter Last Documented by 01/02/2023 [facility] - ESTABLISHED PT Last documented on 01/02/2023; 3:00 PM, [facility] Active Problems & Conditions - Psoriasis Chief Complaint The Chief Complaint is: WWE. No concerns today. No new sexual partners. History of Present Illness PATRICA LAZO is a 22 year old female. - Allergy list reviewed - Medication list reviewed - Primary Care Provider: Katarina Ross Current Medication - Seasonique 0.15-0.03 &0.01 MG Oral Tablet One tablet daily, 84 days, 3 refills Past Medical/Surgical History Reported: LMP: 12/03/2022, Last pap smear date 12/12/2021, and Contraception: Seasonique. Sexual: Sexually active. Social History Tobacco use: Tobacco non-user and non-smoker. Alcohol: Alcohol use occ. Drug Use: Not using drugs. Sexual: 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 Seasonique. Allergies - No Known Allergies Family History Family history reviewed - unchanged since last visit Mom- Hysterectomy for menorrhagia Review Of Systems Gastrointestinal: No pelvic pain. Genitourinary: No menorrhagia. No dysmenorrhea and no bleeding between periods. No vaginal discharge. Physical Findings - Vitals taken 01/02/2023 02:45 pm BP-Sitting L 122/84 mmHg BP Cuff Size Large Temp-Temporal 97.9 F Height 67 in Weight 202 lbs Body Mass Index 31.6 kg/m2 Body Surface Area 2 m2 Standard Measurements: - Patient was not observed to be obese. General Appearance: - Well developed. - Well nourished. - In no acute distress. Neck: Thyroid: - Showed no abnormalities. Lymph Nodes: - Supraclavicular lymph nodes were not enlarged. - Axillary lymph nodes were not enlarged. Breasts: Right Breast: - Nipple was normal. - No abnormal secretion. - No mass was found. - No tenderness. Left Breast: - Nipple was normal. - No abnormal secretion. - No mass was found. - No tenderness. Lungs: - Clear to auscultation. Cardiovascular: Heart Rate And Rhythm: - Normal. Murmurs: - No murmurs were heard. Back: - No right costovertebral angle tenderness. - No left costovertebral angle tenderness. Abdomen: Palpation: - Abdominal non-tender. - No mass was palpated in the abdomen. Liver: - Not enlarged. Spleen: - Not enlarged. Urinary System: Bladder: - Normal. - Not distended. - Did not have a mass. - Incontinence was not demonstrated. Genitalia: External: - Genitalia showed no abnormalities. Pelvic: - No ovarian mass. Vagina: - No vaginal discharge was observed. - No cystocele was observed. - No rectocele was observed. Cervix: - Showed a lesion bleeding with pap. - Did not demonstrate pain elicited by motion. Uterus: - Not enlarged. - Not tender. Uterine Adnexae: - Uterine adnexa was not tender. Rectovaginal: - Tissue was normal. Psychiatric: Appearance: - Grooming was normal. Tests Pathology: Cytology: Cervical Pap Smear performed. Assessment - NORMAL FEMALE EXAM [Z01.419 - Encounter for gynecological examination (general) (routine) without abnormal findings] Previous Tests Pathology: Cytology: Cervical Pap smear 12/12/2021. Therapy - Low fat diet. Counseling/Education - Instructions for patient: Breast Self Exam discussed - Gardasil information given and series encouraged Series completed! - Safe sex counseling - Lose weight - Patient Education: Daily calcium and vitamin D - Patient Education: weight bearing exercise Plan StartCited - Other Follow-up 1 year/prn Seasonique 0.15-0.03 &0.01 MG tablet One tablet daily, 84 days, 3 refills EndCited - Clinical summary provided to patient Practice Management Preventive medicine established patient checkup adult 18-39 years; Use of tobacco assessment performed Review of medications documented. Health Reminders - Assess BMI satisfied 01/02/2023. - Assess Tobacco Use satisfied 01/02/2023.
--- NOTE | 2024-08-22 10:44 | ED_ITS ---
HPI - URI/Sore Throat General Chief Complaint: Upper Respiratory Infection Stated Complaint: Sore Throat Source: patient, RN notes reviewed and old records reviewed Mode of arrival: ambulatory Limitations: no limitations History of Present Illness HPI Narrative: 24 year old female who presents to [facility] care with complaints of sore throat for the past 2 days, some nasal congestion with drainage, no fevers, and denies any cough. Patient reports no fevers no nausea or vomiting or any body aches. Patient reports that she has taken some Ibuprofen for her symptoms.Patient concerned since she has noted some white exudates on her tonsils and some increased discomfort with swallowing. MD elicited complaint: sore throat Onset (ago): day(s) (2) Consistency: constant Severity: mild Description of mucous: clear Able to tolerate fluids by mouth: Yes Exacerbating factors: swallowing Treatments prior to arrival: ibuprofen Related Data Allergies Allergy/AdvReac Type Severity Reaction Status Date / Time No Known Allergies Allergy Verified 08/22/24 10:25 Review of Systems Review of Systems: CONSTITUTIONAL: Some malaise, no chills, sweats, or fever. EYES: Denies visual changes, redness, or discharge. ENT: Reports rhinorrhea, congestion, no sinus pain,no otalgia and positive for sore throat. CARDIOVASCULAR: Denies chest pain, palpitations, or edema. RESPIRATORY: Reports no cough.? Denies dyspnea. GASTROINTESTINAL: Denies abdominal pain, nausea, vomiting, diarrhea SKIN: Denies rash or itching. MUSCULOSKELETAL: Denies myalgia. NEUROLOGIC: reports some headache. All systems reviewed & are unremarkable except as noted in HPI and below PMFSH Past Medical History Medical History (Updated 08/22/24 @ 11:50 by Corina Schaffer NP) Strep throat when younger Social History Social History (Updated 08/22/24 @ 11:50 by Corina Schaffer NP) Smoking status: Current every day smoker Tobacco type: e-cigarettes/vaping Alcohol intake: current Alcohol use details: social Substance use type: does not use Gender identity (if verbalized by the patient): Female Comments At time of signature, agree with nursing past medical, surgical, social and family history. There is no relevant family history pertinent to the presenting complaint Exam Narrative: GENERAL: Well-appearing, well-nourished, and in no acute distress. HEAD: Normocephalic EYES: PERRLA, conjunctivae clear ENT: Nares clear, turbinates edematous and erythematous, clear discharge. Mucous membranes moist. TM pearly coates with dull light reflex bilaterally; no tragal tenderness. Oropharynx erythematous without lesions. Tonsils enlarged and with white exudates, no drooling, no hoarseness, no trismus, uvula midline, voice muffled, some post nasal drainage. NECK: Supple. lymphadenopathy CHEST: Clear to auscultation, breath sounds equal. No wheezing, rhonchi, rales, or stridor. No respiratory distress, speaks in full sentences.SAO2 100% on room air,no tachypnea or cough noted HEART: Regular rate and rhythm. No murmur heard. SKIN: Warm, dry, no rash. NEURO: Alert and oriented x3. PSYCH: Normal mood and affect Course Course Emergency Course: Patient is aware of diagnosis, understands and agrees to treatment plan.? Anticipatory guidance given.? Patient agrees to follow-up as directed and is aware of reasons to seek care at the emergency department. Portions of this record may have been created with voice recognition software Level of Care: Express Care Visit Vital Signs Vital signs: Vital Signs Temperature 36.5 C 08/22/24 10:26 Pulse Rate 117 H 08/22/24 10:26 Respiratory Rate 16 08/22/24 10:26 Blood Pressure 149/94 H 08/22/24 10:26 Pulse Oximetry 100 08/22/24 10:26 Oxygen Delivery Room Air 08/22/24 10:26 Temperature 36.5 C 08/22/24 10:26 Pulse Rate 117 H 08/22/24 10:26 Respiratory Rate 16 08/22/24 10:26 Blood Pressure 149/94 H 08/22/24 10:26 Pulse Oximetry 100 08/22/24 10:26 Oxygen Delivery Room Air 08/22/24 10:26 Reviewed MDM - URI/Sore Throat MDM Narrative Medical decision making narrative: Differential diagnosis considered: Richard virus, strep pharyngitis, allergic rhinitis, upper respiratory tract infection, sinusitis, rhinosinusitis, nasopharyngitis. viral pharyngitis, otitis media, otitis externa, pneumonia, bronchitis, viral cough syndrome, viral syndrome, and influenza.? Exam findings show no acute concerns or changes; patient is non-toxic appearing and is in no distress.? Patient is appropriate for outpatient treatment and follow-up. Differential Diagnosis Differential diagnosis: Likely upper respiratory infection, sinusitis, viral infection, pharyngitis and other (strep pharyngitis, tonsillitis) Medical Records Attestation: I reviewed the patient's medical records. Lab Data Attestation: I reviewed the patient's lab results. Lab results narrative: strep screen negative, culture sent Labs: Lab Results 08/22/24 Range/Units 10:48 POC Grp A Strep Screen Negative (Negative) Critical Care Time Critical Care Time Critical Care Time: No Discharge Plan Discharge Clinical Impression: Exudative tonsillitis Patient Disposition: Home, Self-Care Condition: Stable Instructions: Antibiotic Form, Tonsillitis (ED) Additional Instructions: Zyrtec Claritin or Becki daily . Take the entire course of antibiotics. Throw away your current toothbrush and begin using a new toothbrush in 48 hours in order to prevent re-infection. Sanitize all reusable water bottles . Do not share items with others. Salt water gargles may alleviate some of the throat discomfort. You can take Tylenol or ibuprofen per the package instructions for pain/fever. If your symptoms persist, change or worsen significantly before you can contact your personal physician then please, without delay, go to the emergency department for further evaluation. Follow-up with PCP in 7-10 days or sooner if needed Follow up with PCP soon in regards to your blood pressure which is elevated above threshold for referral. Blood pressure above 120/80 may indicate pre- hypertension. 149/94 Strep culture sent Patient Language: Yi Prescriptions: New amoxicillin 500 mg capsule 500 mg PO Q8H Qty: 30 0RF Follow-up/Referrals: Cody,CHARLI Gong [Primary Care Provider] - Time of Disposition: 11:02 Quality [place] Coma Scale Eyes: Open Verbal: Oriented and Alert Motor: Follows Commands [place] Coma Total Score: 15
--- OUTSIDE RECORDS SUMMARY | 2024-08-22 10:45 | XMS_ITS | Clinical Summary ---
Author Organization [facility] Address [address] [place] [address] Phone Care Team Providers Care Healthcare Business Analyst Name Role Phone TYSHAWN CROSS Primary Care Provider [phone] REYNA RONQUILLO MD Unavailable [phone] Reason for Visit and Chief Complaint The Chief Complaint is: WWE, no c/o, no new partners Problems Includes: Problems addressed during this encounter and other active Problems All Visits Onset Date Resolved Date Provider Condition S tatus Psoriasis 12/09/2020 MICHAEL CHRISTIANSON [facility]- Act linda Last Documented On 1 10:11AM ; [facility] Plan of Treatment - Clinical summary provided to patient - Last Documented On 12/12/2021 10:43AM ; [facility] Instructions to patient Instructions for patient : B reast Self Exam discussed Last Documented On 2 10:25AM ; [facility] Lose weight Last Documented On 2 10:25AM ; [facility] Gardasil information given a nd series encouraged Series completed! Last Documented On 2 10:25AM ; [facility] Safe sex counseling Last Documented On 2 10:25AM ; [facility] Education and Decision Aids were provided during visit for: Patient Education: Daily isidoro cium and vitamin D Last Documented On 2 10:25AM ; [facility] Patient Education: weight be aring exercise Last Documented On 2 10:25AM ; [facility] Assessments Includes: Assessments from this encounter Findings - NORMAL FEMALE EXAM [Z01.419 - Encounter for gynecological examination (general) (routine) without abnormal findings] - Last Documented On 12/12/2021 10:43AM ; [facility] Instructions Includes: Instructions from this encounter Instructions to patient Instructions for patient : B reast Self Exam discussed Last Documented On 2 10:25AM ; [facility] Lose weight Last Documented On 2 10:25AM ; [facility] Gardasil information given a nd series encouraged Series completed! Last Documented On 2 10:25AM ; [facility] Safe sex counseling Last Documented On 2 10:25AM ; [facility] Education and Decision Aids were provided during visit for: Patient Education: Daily isidoro cium and vitamin D Last Documented On 2 10:25AM ; [facility] Patient Education: weight be aring exercise Last Documented On 2 10:25AM ; [facility] Medical Equipment - Implanted Devices Includes: Current Devices No Medical Equipment Recorded Medications Includes: Medications discussed during this encounter and other current Medications New / Renewed during this visit MICHAEL KO on 12/12/2021 Seasonique 0.15-0.03 &0.01 MG Oral Tablet Provider: MICHAEL Ozuna 84 day supply: 84 tablet, 3 refills Diagnosis: One tablet daily Pharmacy: [facility] [address], [address] - Last Documented On 3 2:59PM By MICHAEL KO ; [facility] Current Medications (continue as prescribed) Seasonique 0.15-0.03 &0.01 MG Oral Tablet 01/02/2023 Provider: MICHAEL KO Diagnosis: One tablet daily Last Documented On 3 3:04PM By MICHAEL KO ; [facility] Past Medications on file Diflucan 150MG Oral Tablet 10/02/2016 - 10/03/2016 Pro vider: MICHAEL A CHRISTIANSON WHNP-BC Diagnosis: One tablet daily Last Documented On 7 2:48PM By MICHAEL JACKSON-BC ; [facility] Medications Administered Includes: Administered Medications from this encounter No Administered Medications Recorded Vital Signs Includes: Vital Signs from this encounter Vital Name 12/12/2021 10:26A Blood Pressure Sitting L 120/70 BP Cuff Size Regular Temp-Temporal 98.1 Height (in) 67 Weight (lb) 181 Body Mass Index (kg/m2) 28.3 Body Surface Area (m2) 1.9 Last Documented: On 12/12/2021 10:28A M ; [facility] Results Includes: Results discussed during this encounter No Results Recorded For Specified Dates History of Present Illness Includes: History of Present Illness from this encounter ERLIN LAZO is a 21 year old female. - Allergy list reviewed - Medication list reviewed - Primary Care Provider: Social History Description Last Updated Alcohol use 12/12/2021 Last Documented On 2 10:43AM ; [facility] In monogamous relationship 12/12/2021 Last Documented On 2 10:43AM ; [facility] Not using drugs 12/12/2021 Last Documented On 2 10:43AM ; [facility] Sexually active with 1 partners in the l ast year 12/12/2021 Last Documented On 2 10:43AM ; [facility] Smoking status : Never smoker 12/12/2021 Last Documented On 2 10:43AM ; [facility] Social history changed scott 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 12/12/2021 Last Documented On 2 10:43AM ; [facility] Procedures and Surgical History Includes: Procedures from this encounter Procedures Code Diagnosis Performing Provider Service L ocation Service Date low fat diet Last Documented On 2 10:25AM ; [facility] use of tobacco assessment performed 1000F Last Documented On 2 10:29AM ; [facility] review of medications documented 1160F Last Documented On 2 10:29AM ; [facility] history of cervical Pap smear 12/09/2020 22824 Last Documented On 2 10:29AM ; [facility] test was negative Last Documented On 2 10:30AM ; [facility] Chlamydia trachomatis culture was perfor med Last Documented On 2 10:25AM ; [facility] Neisseria gonorrhea culture was performe d Last Documented On 2 10:25AM ; [facility] Cervical Pap Smear performed Q0091 Last Documented On 2 10:25AM ; [facility] Medical History Includes: Medical History addressed during this encounter Description Last Updated Contraception: Seasonique 12/12/2021 Last Documented On 2 10:43AM ; [facility] Last pap smear date 12/09/2020 12/12/2021 Last Documented On 2 10:43AM ; [facility] LMP: 11/12/2021 12/12/2021 Last Documented On 2 10:43AM ; [facility] History of cervical Pap smear 11/27/2019 12/12/2021 Last Documented On 2 10:43AM ; [facility] No recent change in medical history 11/27 Last Documented On 2 10:43AM ; [facility] Result: normal 12/12/2021 Last Documented On 2 10:43AM ; [facility] Sexually active 12/12/2021 Last Documented On 2 10:43AM ; [facility] Family History Includes: Family History [...] WELL WOMAN - ESTABLISHED PT MICHAEL CHRISTIANSON [facility] 12/13/19 22 10:23AM 10:44AM Normal Female Exam Insurance Includes: Active Insurance Policies Plan Name Member ID Group # Subscriber Relationship Effect linda Dates 1 - [facility] [id number] PATRICA LAZO Self Clinical Notes Includes: Clinical Notes from this encounter No Clinical Notes Recorded
--- OUTSIDE RECORDS SUMMARY | 2024-08-22 10:45 | XMS_ITS | Clinical Summary ---
Author Organization [facility] Address [address] [place] [address] Phone Care Team Providers Care Water Resources Program Director Name Role Phone TYSHAWN CROSS Primary Care Provider [phone] REYNA RONQUILLO MD Unavailable [phone] Reason for Visit and Chief Complaint WELL WOMAN - ESTABLISHED PT Problems Includes: Problems addressed during this encounter and other active Problems All Visits Onset Date Resolved Date Provider Condition S tatus Psoriasis 12/09/2020 MICHAEL KO Act linda Last Documented On 1 10:11AM ; [facility] Plan of Treatment No Plan [...] On 3 3:04PM By MICHAEL KO ; [facility] Medications Administered Includes: Administered [...] Effect linda Dates 1 - [facility] [id number] PATRICA LAZO Self Clinical Notes Includes: Clinical Notes from this encounter No Clinical Notes Recorded
--- OUTSIDE RECORDS SUMMARY | 2024-08-22 10:46 | XMS_ITS | Clinical Summary ---
Author Organization [facility] Address [address] [place] [address]. 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 Provider [phone] Allergies No known active allergies Medications No known medications Active Problems No known active problems Immunizations Name Administration Dates Next Due Dtap (Acel-Immune) 10/30/2002, 0,1998,09/27,1998 HPV4 (Gardasil) 04/15/2009,12/01/2008,09/28/2008 Hepatitis A (Havrix [address]) 06/24/2007, 006 Hepatitis B Pediatric 01/16/1999,1998,05/31 Hib (Generic) 01/11/2000,199 9,1998,07/31 Influenza (FluMist) 04/20/2014,201 2,06/20/2011,08/30 Influenza Adult (Generic) 07/08/2013 MENINGOCOCCAL A C Y&W-135 oligosaccharide (MENVEO) 08/31/2014 MMR (MMRII) 10/30/2002,01/11/2000 Meningcoccal Group B (Bexser o)(aka Meningitis) 02/21/2016,01/19/2016 Meningococcal Vac A,C,Y,W-135 Sc 09/09/2009 PFIZER COVID-19 (ORIGINAL FO RMULATION, PURPLE CAP) mRNA, LNP-S, PF, 30 MCG/0.3 ML DOSE 03/07/2021,02/14/2021,12/17/2020 Polio IPV (Ipol) 10/30/2002, 0,1998,07/31 Tdap (Generic) 09/28/2008 Varicella (Varivax) 06/24/2007,04/18/2000 Family History Medical History Relation Comments Stroke Maternal Grandmother Hypertension Mother Relation Status Comments Maternal Grandmother Mother Social History Tobacco Use Types Packs/Day Years Used Date Smoking Tobacco: Never Smokeless Tobacco: Never Tobacco Cessation:Counseling Given: Yes Comments:The provider can provide you with more information about quitting. Alcohol Use Standard Drinks/Week Comments Yes 3.3 (1 standard drin k = 0.6 oz pure alcohol) I drink socially, some weeks I have no drinks PHQ-2 Answer Date Recorded PHQ-2 Score - If the patient scores above 3, please move on to questions 3-9 0 09/21/2021 Comments No Sex and Gender Information Value Date Recorded Sex Assigned at Not on file Legal Sex Female 10:06 AM BILL HIKER Gender Identity Female 09/20/2021 11:52 AM BILL HIKER Sexual Orientation Straight 09/20/2021 11 :52 AM BILL HIKER Last Filed Vital Signs Vital Sign Reading Time Taken Comments Blood Pressure 110/76 09/21/2021 9:53 AM BILL HIKER Pulse 67 09/21/2021 9:53 AM BILL HIKER Temperature 36.7 ??C (98.1 ??F) 09/21/2021 9:53 AM CS T Respiratory Rate 18 09/21/2021 9:53 AM BILL HIKER Oxygen Saturation 98% 09/21/2021 9:53 AM BILL HIKER Inhaled Oxygen Concentration - - Weight 78.9 kg (174 lb) 09/21/2021 9:53 AM BILL HIKER Height 170.2 cm (5' 7 ) 09/21/2021 9:53 AM BILL HIKER Body Mass Index 27.25 09/21/2021 9:53 AM BILL HIKER Plan of Treatment Health Maintenance Due Date Last Done Comments Cervical Cancer Screening Pap Smear (Age 21 to 29) Every 3 Years 1998 Cervical Cancer Screening 1998 Hepatitis C 2016 DTaP, Tdap and Td Vaccines (7 - Td or Tdap) 09/28/2018 09/28/2008, 10/30/2002, 01/11/2000, Additional history exists Annual Physical 09/21/2022 09/21/2021 COVID-19 Vaccine ( season) 2024 03/07/2021, 02/14/2021, 12/17/2020 Influenza Adult (#1) 2024 04/20/2014, 07/08/2013, 07/04/2012, Additional history exists PHQ-2 (Physician [place]) 07/30/2024 Hepatitis B Vaccines Completed 01/16/1999, 1998, 1998 HPV Vaccines Completed 04/15/2009, 11/2008, 09/28/2008 Meningococcal Vaccine Completed 08/31/2014, 010 Meningococcal B Vaccine Completed 02/21/2016, 01/18 Pneumococcal Vaccine: Pediatrics (0 to 5 Years) and At-Risk Patients (6 to 64 Years) Aged Out No longer eligible based on patient's age to complete this topic RSV Immunizations Under 20 Months Aged Out No longer eligible based on patient's age to complete this topic Insurance [facility] Care Teams Clay Press Operator Relationship Specialty Start Date End Date Katarina Ross NP [address] [id number] PCP - General NURSE PRACTITIONER 09/08/21
--- OUTSIDE RECORDS SUMMARY | 2024-08-22 10:46 | XMS_ITS ---
Author Organization [facility] Address [address] [place] [address] Phone Care Team Providers Care Leather Splitter Name Role Phone TYSHAWN CROSS Primary Care Provider [phone] REYNA RONQUILLO MD Unavailable [phone] Problems Includes: Active, inactive, and resolved Problems All Visits Onset Date Resolved Date Provider Condition S tatus Psoriasis 12/09/2020 MICHAEL CHRISTIANSON NP-BC Act linda Last Documented On 1 10:11AM ; [facility] Plan of Treatment Findings Encounter Date Ordered Clinical summary pro vided to patient WELL WOMAN - ESTABLISHED PT with MICHAEL CHRISTIANSON WHNP-BC 01/02/2023 Last Documented On 3 3:00PM ; [facility] Ordered Clinical summary pro vided to patient WELL WOMAN - ESTABLISHED PT with MICHAELCOLLIN CHRISTIANSON WHNP-BC 12/12/2021 Last Documented On 2 10:43AM ; [facility] Ordered Clinical summary pro vided to patient WELL WOMAN - ESTABLISHED PT with MICHAELCOLLIN CHRISTIANSON WHNP-BC 12/09/2020 Last Documented On 1 10:11AM ; [facility] Ordered Clinical summary pro vided to patient CAREER AGENT EXAM with MICHAEL CHRISTIANSON WHNP-BC 11/27/2019 Last Documented On 0 8:14AM ; [facility] Ordered Clinical summary pro vided to patient CAREER AGENT EXAM with MICHAEL CHRISTIANSON NP- 11/25/2018 Last Documented On 9 10:31AM ; [facility] Ordered Clinical summary pro vided to patient CAREER AGENT EXAM with MICHAEL CHRISTIANSON NP-BC 10/08/2017 Last Documented On 8 3:42PM ; [facility] Ordered Clinical summary pro vided to patient PELVIC EXAM with MICHAEL CHRISTIANSON NP-BC 01/08/2017 Last Documented On 7 3:46PM ; [facility] ER/pain precautions reviewed NEW CAREER AGENT EXAM with Laith CHRISTIANSON NP- 10/02/2016 Last Documented On 7 2:37PM ; [facility] Ordered Clinical summary pro vided to patient NEW CAREER AGENT EXAM with MICHAEL CHRISTIANSON NP- 10/02/2016 Last Documented On 7 2:37PM ; [facility] Instructions to patient Instructions for patient : B reast Self Exam discussed Last Documented On 3 2:40PM ; [facility] Lose weight Last Documented On 3 2:41PM ; [facility] Gardasil information given a nd series encouraged Series completed! Last Documented On 3 2:41PM ; [facility] Safe sex counseling Last Documented On 3 2:41PM ; [facility] Instructions for patient : B reast Self Exam discussed Last Documented On 2 10:25AM ; [facility] Lose weight Last Documented On 2 10:25AM ; [facility] Gardasil information given a nd series encouraged Series completed! Last Documented On 2 10:25AM ; [facility] Safe sex counseling Last Documented On 2 10:25AM ; [facility] Instructions for patient : B reast Self Exam discussed Last Documented On 1 9:58AM ; [facility] Lose weight Last Documented On 1 9:59AM ; [facility] Gardasil information given a nd series encouraged Series completed! Last Documented On 1 9:59AM ; [facility] Safe sex counseling Last Documented On 1 9:59AM ; [facility] Instructions for patient : B reast Self Exam discussed Last Documented On 0 7:57AM ; [facility] Gardasil information given a nd series encouraged Series completed! Last Documented On 0 7:58AM ; [facility] Safe sex counseling Last Documented On 0 7:58AM ; [facility] Instructions for patient : B reast Self Exam discussed Last Documented On 9 10:24AM ; [facility] Lose weight Last Documented On 9 10:25AM ; [facility] Gardasil information given a nd series encouraged Series completed! Last Documented On 9 10:25AM ; [facility] Safe sex counseling Last Documented On 9 10:25AM ; [facility] Instructions for patient : B reast Self Exam discussed Last Documented On 8 3:32PM ; [facility] Gardasil information given a nd series encouraged Series completed with peds! Last Documented On 8 3:42PM ; [facility] Safe sex counseling Last Documented On 8 3:33PM ; [facility] Safe sex counseling Last Documented On 7 3:45PM ; [facility] Instructions for patient : B reast Self Exam discussed Last Documented On 7 12:43PM ; [facility] Instructions for patient ER if bleeding through reg. sized pad/tampon < 1 hour Last Documented On 7 12:50PM ; [facility] Instructions for patient : p atient is to keep a menstrual diary to help with further evaluation and treatment Last Documented On 7 12:50PM ; [facility] Instructions for patient ER if dizzy, vomiting or light-headed due to heavy bleeding Last Documented On 7 12:50PM ; [facility] Gardasil information given a nd series encouraged Last Documented On 7 12:44PM ; [facility] Safe sex counseling Last Documented On 7 12:44PM ; [facility] Education and Decision Aids were provided during visit for: Patient Education: Daily isidoro cium and vitamin D Last Documented On 3 2:40PM ; [facility] Patient Education: weight be aring exercise Last Documented On 3 2:40PM ; [facility] Patient Education: Daily isidoro cium and vitamin D Last Documented On 2 10:25AM ; [facility] Patient Education: weight be aring exercise Last Documented On 2 10:25AM ; [facility] Patient Education: Daily isidoro cium and vitamin D Last Documented On 1 9:58AM ; [facility] Patient Education: weight be aring exercise Last Documented On 1 9:58AM ; [facility] Patient Education: Daily isidoro cium and vitamin D Last Documented On 0 7:57AM ; [facility] Patient Education: weight be aring exercise Last Documented On 0 7:57AM ; [facility] Patient Education: Daily isidoro cium and vitamin D Last Documented On 9 10:24AM ; [facility] Patient Education: weight be aring exercise Last Documented On 9 10:24AM ; [facility] Patient Education: Daily isidoro cium and vitamin D Last Documented On 8 3:32PM ; [facility] Patient Education: weight be aring exercise Last Documented On 8 3:32PM ; [facility] Patient counseling : Use of oral contraceptives discussed in detail including rare occurrence of heart attack, stroke, and leg clots. Patient understands that smoking increases the risk of serious side effects with any steroid-based contraceptive method Last Documented On 7 3:46PM ; [facility] Patient Education: Daily isidoro cium and vitamin D Last Documented On 7 12:43PM ; [facility] Patient Education: weight be aring exercise Last Documented On 7 12:43PM ; [facility] Candidiasis Vulvovaginitis I nformation Sheet Given Last Documented On 7 2:36PM ; [facility] control consent review ed and signed Last Documented On 7 1:14PM ; [facility] Assessments Includes: Assessments for all patient encounters Findings Encounter Date NORMAL FEMALE EXAM WELL WOMAN - ESTABLISHED PT w jose elias CHRISTIANSON [facility] 01/02/2023 Last Documented On 3 3:00PM ; [facility] NORMAL FEMALE EXAM WELL WOMAN - ESTABLISHED PT w ith MICHAEL CHRISTIANSON [facility] 12/12/2021 Last Documented On 2 10:43AM ; [facility] NORMAL FEMALE EXAM WELL WOMAN - ESTABLISHED PT w ith MICHAEL CHRISTIANSON [facility] 12/09/2020 Last Documented On 1 10:11AM ; [facility] NORMAL FEMALE EXAM CAREER AGENT EXAM with MICHAEL Garcia [facility] 11/27/2019 Last Documented On 0 8:14AM ; [facility] NORMAL FEMALE EXAM CAREER AGENT EXAM with MICHAEL Garcia [facility]-BC 11/25/2018 Last Documented On 9 10:31AM ; [facility] NORMAL FEMALE EXAM CAREER AGENT EXAM with MICHAEL Garcia [facility] 10/08/2017 Last Documented On 8 3:42PM ; [facility] Menorrhagia NEW CAREER AGENT EXAM with MICHAEL CHRISTIANSON [facility] 10/02/2016 Last Documented On 7 2:37PM ; [facility] NORMAL FEMALE EXAM NEW CAREER AGENT EXAM with MICHAEL SAUER [facility]- 10/02/2016 Last Documented On 7 2:37PM ; [facility] Instructions Includes: Instructions for all patient encounters Instructions to patient Instructions for patient : B reast Self Exam discussed Last Documented On 3 2:40PM ; [facility] Lose weight Last Documented On 3 2:41PM ; [facility] Gardasil information given a nd series encouraged Series completed! Last Documented On 3 2:41PM ; [facility] Safe sex counseling Last Documented On 3 2:41PM ; [facility] Instructions for patient : B reast Self Exam discussed Last Documented On 2 10:25AM ; [facility] Lose weight Last Documented On 2 10:25AM ; [facility] Gardasil information given a nd series encouraged Series completed! Last Documented On 2 10:25AM ; [facility] Safe sex counseling Last Documented On 2 10:25AM ; [facility] Instructions for patient : B reast Self Exam discussed Last Documented On 1 9:58AM ; [facility] Lose weight Last Documented On 1 9:59AM ; [facility] Gardasil information given a nd series encouraged Series completed! Last Documented On 1 9:59AM ; [facility] Safe sex counseling Last Documented On 1 9:59AM ; [facility] Instructions for patient : B reast Self Exam discussed Last Documented On 0 7:57AM ; [facility] Gardasil information given a nd series encouraged Series completed! Last Documented On 0 7:58AM ; [facility] Safe sex counseling Last Documented On 0 7:58AM ; [facility] Instructions for patient : B reast Self Exam discussed Last Documented On 9 10:24AM ; [facility] Lose weight Last Documented On 9 10:25AM ; [facility] Gardasil information given a nd series encouraged Series completed! Last Documented On 9 10:25AM ; [facility] Safe sex counseling Last Documented On 9 10:25AM ; [facility] Instructions for patient : B reast Self Exam discussed Last Documented On 8 3:32PM ; [facility] Gardasil information given a nd series encouraged Series completed with peds! Last Documented On 8 3:42PM ; [facility] Safe sex counseling Last Documented On 8 3:33PM ; [facility] Safe sex counseling Last Documented On 7 3:45PM ; [facility] Instructions for patient : B reast Self Exam discussed Last Documented On 7 12:43PM ; [facility] Instructions for patient ER if bleeding through reg. sized pad/tampon < 1 hour Last Documented On 7 12:50PM ; [facility] Instructions for patient : p atient is to keep a menstrual diary to help with further evaluation and treatment Last Documented On 7 12:50PM ; [facility] Instructions for patient ER if dizzy, vomiting or light-headed due to heavy bleeding Last Documented On 7 12:50PM ; [facility] Gardasil information given a nd series encouraged Last Documented On 7 12:44PM ; [facility] Safe sex counseling Last Documented On 7 12:44PM ; [facility] Education and Decision Aids were provided during visit for: Patient Education: Daily isidoro cium and vitamin D Last Documented On 3 2:40PM ; [facility] Patient Education: weight be aring exercise Last Documented On 3 2:40PM ; [facility] Patient Education: Daily isidoro cium and vitamin D Last Documented On 2 10:25AM ; [facility] Patient Education: weight be aring exercise Last Documented On 2 10:25AM ; [facility] Patient Education: Daily isidoro cium and vitamin D Last Documented On 1 9:58AM ; [facility] Patient Education: weight be aring exercise Last Documented On 1 9:58AM ; [facility] Patient Education: Daily isidoro cium and vitamin D Last Documented On 0 7:57AM ; [facility] Patient Education: weight be aring exercise Last Documented On 0 7:57AM ; [facility] Patient Education: Daily isidoro cium and vitamin D Last Documented On 9 10:24AM ; [facility] Patient Education: weight be aring exercise Last Documented On 9 10:24AM ; [facility] Patient Education: Daily isidoro cium and vitamin D Last Documented On 8 3:32PM ; [facility] Patient Education: weight be aring exercise Last Documented On 8 3:32PM ; [facility] Patient counseling : Use of oral contraceptives discussed in detail including rare occurrence of heart attack, stroke, and leg clots. Patient understands that smoking increases the risk of serious side effects with any steroid-based contraceptive method Last Documented On 7 3:46PM ; [facility] Patient Education: Daily isidoro cium and vitamin D Last Documented On 7 12:43PM ; [facility] Patient Education: weight be aring exercise Last Documented On 7 12:43PM ; [facility] Candidiasis Vulvovaginitis I nformation Sheet Given Last Documented On 7 2:36PM ; [facility] control consent review ed and signed Last Documented On 7 1:14PM ; [facility] Medical Equipment - Implanted Devices Includes: Current and historical Devices No Medical Equipment Recorded Medications Includes: Current and historical Medications Current Medications (continue as prescribed) Seasonique 0.15-0.03 &0.01 MG Oral Tablet 01/02/2023 Provider: MICHAEL RUGGIEROBC Diagnosis: One tablet daily Last Documented On 3 3:04PM By MICHAEL KO ; [facility] Past Medications on file Seasonique 0.15-0.03 &0.01 M G Oral Tablet 12/12/2021 - 01/02/2023 Provider: MICHAEL CHRISTIANSON CHARRER-BC Diagnosis: One tablet daily Last Documented On 3 2:59PM By MICHAEL KO ; [facility] Aviane 0.1-20 MG-MCG Oral Tablet 12/09/2020 - 12/09/2020 Provider: MICHAEL CHRISTIANSON CHARRER-BC Diagnosis: One tablet daily Last Documented On 1 10:09AM By MICHAEL KO ; [facility] Seasonique 0.15-0.03 &0.01 M G Oral Tablet 12/09/2020 - 12/12/2021 Provider: MICHAEL DAVIS CHARRER-BC Diagnosis: One tablet daily Last Documented On 2 10:42AM By MICHAEL KO ; [facility] Aviane 0.1-20 MG-MCG Oral Tablet 11/27/2019 - 12/09/2020 Provider: MICHAEL DAVIS CHARRER-BC Diagnosis: One tablet daily Last Documented On 1 10:00AM By MICHAEL KO ; [facility] Aviane 0.1-20MG-MCG Oral Tablet 11/25/2018 - 11/27/2019 Provider: MICHAEL DAVIS CHARRER-BC Diagnosis: One tablet daily Last Documented On 0 8:06AM By MICHAEL KO ; [facility] Aviane 0.1-20MG-MCG Oral Tablet 10/18/2018 - 11/25/2018 Provider: MICHAEL SIDHU Diagnosis: One tablet daily Last Documented On 9 10:30AM By MICHAEL KO ; [facility] Aviane 0.1-20MG-MCG Oral Tablet 10/08/2017 - 10/18/2018 Provider: MICHAEL DAVIS NP-BC Diagnosis: One tablet daily Last Documented On 9 12:19PM By MICHAEL KO ; [facility] Aviane 0.1-20MG-MCG Oral Tablet 01/08/2017 - 10/08/2017 Provider: MICHAEL DAVIS NP-JENS Diagnosis: One tablet daily Last Documented On 8 3:42PM By MICHAEL KO ; [facility] Diflucan 150MG Oral Tablet 10/02/2016 - 10/03/2016 Pro vider: MICHAEL KO Diagnosis: One tablet daily Last Documented On 7 2:48PM By MICHAEL KO ; [facility] Aviane 0.1-20MG-MCG Oral Tablet 10/02/2016 - 01/08/2017 Provider: MICHAEL SIDHU Diagnosis: One tablet daily Last Documented On 7 3:47PM By MICHAEL KO ; [facility] 01/02/2023 Last Documented On 3 3:00PM ; [facility] Non-smoker 11/27/2019 Last Documented On 0 8:14AM ; [facility] Smoking Status Unknown Medical History Includes: Medical History in patient's chart Description Last Updated Contraception: Seasonique 12/12/2021 Last Documented On 2 10:43AM ; [facility] Sexually active 12/12/2021 Last Documented On 2 10:43AM ; [facility] Family History Includes: Family History [...] Subscriber Relationship Effect linda Dates 1 - [facility] [id number] PATRICA LAZO Self Clinical Notes Includes: Signed Clinical Notes starting from 08/18/2022 No Clinical Notes Recorded
--- OUTSIDE RECORDS SUMMARY | 2024-08-22 10:46 | XMS_ITS | Clinical Summary ---
Author Organization [facility] [[email or web address]] Address [address] [place] [address] Phone Care Team Providers Care Supervisor Wash House Name Role Phone TYSHAWN CROSS Primary Care Provider [phone] RYENA RONQUILLO MD Unavailable [phone] Reason for Visit and Chief Complaint gynecologic annual exam - The Chief Complaint is: Annual Problems Includes: Problems addressed during this encounter and other active Problems All Visits Onset Date Resolved Date Provider Condition S tatus Psoriasis 12/09/2020 MCIHAEL CHRISTIANSON KARLEY- Act linda Last Documented On 1 10:11AM ; [facility] [[email or web address]] Plan of Treatment - Clinical summary provided to patient - Last Documented On 11/27/2019 8:14AM ; [facility] Per new ASCCP guidelines, pap was deferred today. This was d/w pt. and pt. is agreeable to this plan. - Last Documented On 11/27/2019 8:14AM ; [facility] [[email or web address]] Instructions to patient Instructions for patient : B reast Self Exam discussed Last Documented On 0 7:57AM ; [facility] Gardasil information given a nd series encouraged Series completed! Last Documented On 0 7:58AM ; [facility] [[email or web address]] Safe sex counseling Last Documented On 0 7:58AM ; [facility] [[email or web address]] Education and Decision Aids were provided during visit for: Patient Education: Daily isidoro cium and vitamin D Last Documented On 0 7:57AM ; [facility] Patient Education: weight be aring exercise Last Documented On 0 7:57AM ; [facility] Assessments Includes: Assessments from this encounter Findings - NORMAL FEMALE EXAM - Last Documented On 11/27/2019 8:14AM ; [facility] Instructions Includes: Instructions from this encounter Instructions to patient Instructions for patient : B reast Self Exam discussed Last Documented On 0 7:57AM ; [facility] Gardasil information given a nd series encouraged Series completed! Last Documented On 0 7:58AM ; [facility] Safe sex counseling Last Documented On 0 7:58AM ; [facility] Education and Decision Aids were provided during visit for: Patient Education: Daily isidoro cium and vitamin D Last Documented On 0 7:57AM ; [facility] Patient Education: weight be aring exercise Last Documented On 0 7:57AM ; [facility] Medical Equipment - Implanted Devices Includes: Current Devices No Medical Equipment Recorded Medications Includes: Medications discussed during this encounter and other current Medications New / Renewed during this visit MICHAEL KO on 11/27/2019 Aviane 0.1-20 MG-MCG Oral Tablet Provider: MICHAEL Ozuna 30 day supply: 30 tablet, 11 refills Diagnosis: One tablet daily [facility]: [facility] [address], [address] - Last Documented On 1 10:00AM By MICHAEL KO ; [facility] [[email or web address]] Current Medications (continue as prescribed) Seasonique 0.15-0.03 &0.01 MG Oral Tablet 01/02/2023 Provider: MICHAEL KO Diagnosis: One tablet daily Last Documented On 3 3:04PM By MICHAEL KO ; [facility] Past Medications on file Diflucan 150MG Oral Tablet 10/02/2016 - 10/03/2016 Pro vider: MICHAEL KO Diagnosis: One tablet daily Last Documented On 7 2:48PM By MICHAEL KO ; [facility] Medications Administered Includes: Administered Medications from this encounter No Administered Medications Recorded Vital Signs Includes: Vital Signs from this encounter Vital Name 11/27/2019 08:03A Blood Pressure Sitting L 110/60 BP Cuff Size Regular Temp-Oral (F) 98.2 Height (in) 67 Weight (lb) 166 Body Mass Index (kg/m2) 26.0 Body Surface Area (m2) 1.9 Last Documented: On 11/27/2019 8:05AM ; [facility] Results Includes: Results discussed during this encounter THINPREP TIS PAP REFLEX HPV mRNA E6/E7 Q [employer] Ordered by REYNA RONQUILLO MD on 11/26/19 Collected: 11/25/2018 Reported: 11/29/19 19 10:15 Last Documented On 9 2:37PM ; [facility] Reviewed by REYNA Lopez on 11/28/2018; All test results are final unless otherwise noted. COMMENT See Note None Last Documented On 11/28/2018 2:37PM ; [facility] Note: EXPLANATORY NOTE: The Pap is a [...] (Normal) Last Documented On 9 2:37PM ; [facility] CLINICAL INFORMATION: Routine exam N (Normal) Last Documented On 9 2:37PM ; [facility] [[email or web address]] LMP: 4-13-19 N (Normal) Last Documented On 9 2:37PM ; [facility] PREV. PAP: NONE N (Normal) Last Documented On 9 2:37PM ; [facility] PREV. BX: NONE N (Normal) Last Documented On 9 2:37PM ; [facility] STATEMENT OF ADEQUACY: Satisfactory for evaluation. Endocervical/transformation zone component present. N (Normal) Last Documented On 9 2:37PM ; [facility] INTERPRETATION/RESULT: Negative for intraepithelial lesion or malignancy. N (Normal) Last Documented On 9 2:37PM ; [facility] COMMENT: This Pap test has been evaluated with computer assisted technology. N (Normal) Last Documented On 9 2:37PM ; [facility] BAR HELPER: WILFRIDO JOHNSON(ASCP) CT screening location: [place] [address] [place] [address] N (Normal) Last Documented On 9 2:37PM ; [facility] History of Present Illness Includes: History of Present Illness from this encounter HPI PATRICA LAZO is a 19 year old female. - Allergy list reviewed - Medication list reviewed - PRIMARY CARE PROVIDER : Reyna Johnson - Medication reconciliation performed Social History Description Last Updated Alcohol use 11/27/2019 Last Documented On 0 8:14AM ; [facility] In monogamous relationship 11/27/2019 Last Documented On 0 8:14AM ; [facility] Non-smoker 11/27/2019 Last Documented On 0 8:14AM ; [facility] Not using drugs 11/27/2019 Last Documented On 0 8:14AM ; [facility] Sexually active with 1 partners in the l ast year 11/27/2019 Last Documented On 0 8:14AM ; [facility] Social history changed pt currently work ing at [employer] 11/27/2019 Last Documented On 0 8:14AM ; [facility] Smoking status : Never smoker 11/27/2019 Last Documented On 0 8:14AM ; [facility] Procedures and Surgical History Includes: Procedures from this encounter Procedures Code Diagnosis Performing Provider Service L ocation Service Date low fat diet Last Documented On 0 7:58AM ; [facility] Chlamydia trachomatis culture was perfor med Last Documented On 0 8:08AM ; [facility] Neisseria gonorrhea culture was performe d Last Documented On 0 8:08AM ; [facility] Cervical Pap Smear performed Q0091 Last Documented On 0 8:08AM ; [facility] Medical History Includes: Medical History addressed during this encounter Description Last Updated No recent change in medical history 10/30 Last Documented On 0 8:14AM ; [facility] LMP: 11/11/2019 11/27/2019 Last Documented On 0 8:14AM ; [facility] Sexually active 11/27/2019 Last Documented On 0 8:14AM ; [facility] Contraception: avaine 11/27/2019 Last Documented On 0 8:14AM ; [facility] [[email or web address]] History of Pap smear done 11/25/201810/30 Last Documented On 0 8:14AM ; [facility] Result: normal 11/27/2019 Last Documented On 0 8:14AM ; [facility] [[email or web address]] Family History Includes: Family History addressed during this encounter Description Last Updated Family history unchanged 11/27/2019 Last Documented On 0 8:14AM ; [facility] Review of Systems Includes: [...] Location Date Check-In Time Check-Out Time Diagnosis 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
--- OUTSIDE RECORDS SUMMARY | 2024-08-22 10:46 | XMS_ITS | Referral Summary ---
Author Organization [facility] Address [address] [place] [address] Care Team Providers Care Crushed Stone Grader Name Role Phone Unavailable Primary Care Provider Unavailabl e Source Comments [facility],non-owned Affiliates and Associated Physician Practices is amultiple site organization consisting of ambulatory clinics and hospital sitesin [place], [place], [place] and [place]. This disclosure is being madepursuant to the Care Everywhere program and may not contain all information available regarding this patient. Last updated 18.[facility] [employer] Allergies No known active allergies Social History Tobacco Use Types Packs/Day Years Used Date Smoking Tobacco: Never Assessed Sex and Gender Information Value Date Recorded Sex Assigned at Not on file Gender Identity Not on file Sexual Orientation Not on file Plan of Treatment Not on file Administered Medications
--- OUTSIDE RECORDS SUMMARY | 2024-08-22 10:46 | XMS_ITS | Clinical Summary ---
Author Organization [facility] Address [address] [place] [address] Phone Care Team Providers Care Occupancy Specialist Name Role Phone TYSHAWN CROSS Primary Care Provider [phone] REYNA RONQUILLO MD Unavailable [phone] Reason for Visit and Chief Complaint The Chief Complaint is: WWE. No concerns today. No new sexual partners Problems Includes: Problems addressed during this encounter and other active Problems All Visits Onset Date Resolved Date Provider Condition S tatus Psoriasis 12/09/2020 MICHAEL CHRISTIANSON [facility] Act linda Last Documented On 1 10:11AM ; [facility] Plan of Treatment - Clinical summary provided to patient - Last Documented On 01/02/2023 3:00PM ; [facility] Instructions to patient Instructions for patient : B reast Self Exam discussed Last Documented On 3 2:40PM ; [facility] Lose weight Last Documented On 3 2:41PM ; [facility] Gardasil information given a nd series encouraged Series completed! Last Documented On 3 2:41PM ; [facility] Safe sex counseling Last Documented On 3 2:41PM ; [facility] Education and Decision Aids were provided during visit for: Patient Education: Daily isidoro cium and vitamin D Last Documented On 3 2:40PM ; [facility] Patient Education: weight be aring exercise Last Documented On 3 2:40PM ; [facility] Assessments Includes: Assessments from this encounter Findings - NORMAL FEMALE EXAM [Z01.419 - Encounter for gynecological examination (general) (routine) without abnormal findings] - Last Documented On 01/02/2023 3:00PM ; [facility] Instructions Includes: Instructions from this encounter Instructions to patient Instructions for patient : B reast Self Exam discussed Last Documented On 3 2:40PM ; [facility] Lose weight Last Documented On 3 2:41PM ; [facility] Gardasil information given a nd series encouraged Series completed! Last Documented On 3 2:41PM ; [facility] Safe sex counseling Last Documented On 3 2:41PM ; [facility] Education and Decision Aids were provided during visit for: Patient Education: Daily isidoro cium and vitamin D Last Documented On 3 2:40PM ; [facility] Patient Education: weight be aring exercise Last Documented On 3 2:40PM ; [facility] Medical Equipment - Implanted Devices Includes: Current Devices No Medical Equipment Recorded Medications Includes: Medications discussed during this encounter and other current Medications New / Renewed during this visit MICHAEL KO on 01/02/2023 Seasonique 0.15-0.03 &0.01 MG Oral Tablet Provider: MICHAEL Ozuna 84 day supply: 84 tablet, 3 refills Diagnosis: One tablet daily [facility]acy: [facility], [address] - Last Documented On 3 3:04PM By MICHAEL KO ; [facility] Past Medications on file Diflucan 150MG Oral Tablet 10/02/2016 - 10/03/2016 Pro vider: MICHAEL KO Diagnosis: One tablet daily Last Documented On 7 2:48PM By MICHAEL KO ; [facility] Medications Administered Includes: Administered Medications from this encounter No Administered Medications Recorded Vital Signs Includes: Vital Signs from this encounter Vital Name 01/02/2023 02:45P Blood Pressure Sitting L 122/84 BP Cuff Size Large Temp-Temporal 97.9 Height (in) 67 Weight (lb) 202 Body Mass Index 31.6 Body Surface Area 2 Last Documented: On 01/02/2023 2:46PM ; [facility] Results Includes: Results discussed [...] 01/02/2023 Last Documented On 3 3:00PM ; [facility] Tobacco non-user 01/02/2023 Last Documented On 3 3:00PM ; [facility] 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 Seasoni que 01/02/2023 Last Documented On 3 3:00PM ; [facility] Not using drugs 12/12/2021 Last Documented On 3 2:39PM ; [facility] Non-smoker 11/27/2019 Last Documented On 3 2:39PM ; [facility] Smoking Status Unknown Procedures and Surgical History Includes: Procedures from this encounter Procedures Code Diagnosis Performing Provider Service L ocation Service Date low fat diet Last Documented On 3 2:41PM ; [facility] use of tobacco assessment performed 1000F Last Documented On 3 2:40PM ; [facility] review of medications documented 1160F Last Documented On 3 2:40PM ; [facility] history of cervical Pap smear 12/12/2021 82151 Last Documented On 3 2:40PM ; [facility] Cervical Pap Smear performed Q0091 Last Documented On 3 2:41PM ; [facility] Medical History Includes: Medical History addressed during this encounter Description Last Updated LMP: 12/03/2022 01/02/2023 Last Documented On 3 3:00PM ; [facility] Last pap smear date 12/12/2021 01/02/2023 Last Documented On 3 3:00PM ; [facility] Contraception: Seasonique 12/12/2021 Last Documented On 3 2:39PM ; [facility] Sexually active 12/12/2021 Last Documented On 3 2:39PM ; [facility] Family History Includes: Family History addressed during this encounter Description Last Updated Mom- Hysterectomy for menorrhagia 2022 Last Documented On 3 2:48PM ; [facility] Family history reviewed - unchanged sinc e last visit 01/02/2023 Last Documented On 3 3:00PM ; [facility] Review of Systems Includes: Review of [...] [facility] WOMAN - ESTABLISHED [facility] 01/03/20 23 2:40PM 3:01PM Normal Female Exam Insurance Includes: Active Insurance Policies Plan Name Member ID Group # Subscriber Relationship Effect linda Dates 1 - [facility] [id number] PATRICA LAZO Self Clinical Notes Includes: Clinical Notes from this encounter * Progress note Date Encounter Last Documented by 01/02/2023 WELL WOMAN - ESTABLISHED PT Last documented on 01/02/2023; 3:00 PM, [facility] Active Problems & Conditions - Psoriasis Chief [...]
--- OUTSIDE RECORDS SUMMARY | 2024-08-22 10:46 | XMS_ITS | Clinical Summary ---
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 Gender Identity Not on file Sexual Orientation Not on file Plan of Treatment Health Maintenance Due Date Last Done Comments Cervical Cancer Screening 1998 Depression Screening 1998 Hepatitis C Screening 1998 Regular Well Visit/Exam 18-64 2016 DTaP/Tdap/Td Vaccine (7 - Td or Tdap) 09/28/2018 09/28/2008, 10/30/2002, 01/11/2000, Additional history exists Covid-19 Vaccine ( season) 2024 03/07/2021, 02/14/2021, 12/17/2020 Influenza Vaccine (#1) 2024 , 04/20/2014, 04/20/2014, Additional history exists Varicella Vaccines Completed 06/24/2007, 04/18/2000 HPV Vaccines Completed 04/15/2009, 11/2008, 09/28/2008 Pneumococcal vaccine <65 Aged Out No longer eligible based on patient's age to complete this topic Care Teams Manager Appointment Relationship Specialty Start Date End Date Unknown, Notinfile PCP - General 09/05/22
--- OUTSIDE RECORDS SUMMARY | 2024-08-22 10:46 | XMS_ITS | Patient Health Summary ---
Author Organization [facility] Address [address] [place] [address] Care Team Providers Care Inventory Control Coordinator Name Role Phone Unavailable Primary Care Provider Unavailabl e Note from [facility],non-owned Affiliates and Associated Physician Practices is amultiple site organization consisting of ambulatory clinics and hospital sitesin [place], [place], [place] and [place]. This disclosure is being madepursuant to the Care Everywhere program and may not contain all information available regarding this patient. Last updated 18.[facility] Allergies No known active allergies Social History Tobacco Use Types Packs/Day Years Used Date Smoking Tobacco: Never Assessed Sex and Gender Information Value Date Recorded Sex Assigned at Not on file Gender Identity Not on file Sexual Orientation Not on file Procedures * SKIN TEST PPD - POINT OF CARE(Performed 11/01/2017) Performed for Screening examination for pulmonary tuberculosis Results * SKIN TEST PPD - POINT OF CARE (11/01/2017) PPD 0 mm, neg Other MISCELLANEOUS SAMPLE S / Unknown 11/01/2017 Jesica Marr [employer] DEVELOPER-ELECTRIC MOTOR MECHANIC LAB - POINT O F CARE ORDERABLES
--- OUTSIDE RECORDS SUMMARY | 2024-08-22 10:46 | XMS_ITS | Clinical Summary ---
Author Organization [facility] Address [address] [place] [address] Phone Care Team Providers Care Water Softener Servicer Name Role Phone TYSHAWN CROSS Primary Care Provider [phone] REYNA RONQUILLO MD Unavailable [phone] Reason for Visit and Chief Complaint The Chief Complaint is: WWE, would like to talk about switching control. her pills are not helping with her cramps but cycles are regular. No new partners Problems Includes: Problems addressed during this encounter and other active Problems Current Visit Onset Date Resolved Date Provider Hank n Status Psoriasis 12/09/2020 MICHAEL CHRISTIANSON [facility]- Act linda Last Documented On 1 10:11AM ; [facility] Plan of Treatment - Clinical summary provided to patient - Last Documented On 12/09/2020 10:11AM ; [facility] Instructions to patient Instructions for patient : B reast Self Exam discussed Last Documented On 1 9:58AM ; [facility] Lose weight Last Documented On 1 9:59AM ; [facility] Gardasil information given a nd series encouraged Series completed! Last Documented On 1 9:59AM ; [facility] Safe sex counseling Last Documented On 1 9:59AM ; [facility] Education and Decision Aids were provided during visit for: Patient Education: Daily isidoro cium and vitamin D Last Documented On 1 9:58AM ; [facility] Patient Education: weight be aring exercise Last Documented On 1 9:58AM ; [facility] Assessments Includes: Assessments from this encounter Findings - NORMAL FEMALE EXAM [Z01.419 - Encounter for gynecological examination (general) (routine) without abnormal findings] - Last Documented On 12/09/2020 10:11AM ; [facility] Instructions Includes: Instructions from this encounter Instructions to patient Instructions for patient : B reast Self Exam discussed Last Documented On 1 9:58AM ; [facility] Lose weight Last Documented On 1 9:59AM ; [facility] Gardasil information given a nd series encouraged Series completed! Last Documented On 1 9:59AM ; [facility] Safe sex counseling Last Documented On 9:59AM ; [facility] Education and Decision Aids were provided during visit for: Patient Education: Daily isidoro cium and vitamin D Last Documented On 1 9:58AM ; [facility] Patient Education: weight be aring exercise Last Documented On 9:58AM ; [facility] Medical Equipment - Implanted Devices Includes: Current Devices No Medical Equipment Recorded Medications Includes: Medications discussed during this encounter and other current Medications Discontinued / Stopped on this date MICHAEL KO on 12/09/2020 Aviane 0.1-20 MG-MCG Oral Tablet Provider : MICHAEL KO Diagnosis: Last Documented On 1 10:09AM By MICHAEL KO ; [facility] New / Renewed during this visit MICHAEL KO on 12/09/2020 Seasonique 0.15-0.03 &0.01 MG Oral Tablet Provider: MICHAEL Ozuna 84 day supply: 84 tablet, 3 refills Diagnosis: One tablet daily Pharmacy: [facility] [address], [address] - Last Documented On 2 10:42AM By MICHAEL KO ; [facility] Current Medications (continue as prescribed) Seasonique 0.15-0.03 &0.01 MG Oral Tablet 01/02/2023 Provider: MICHAEL KO Diagnosis: One tablet daily Last Documented On 3 3:04PM By MICHAEL KO ; [facility] Past Medications on file Diflucan 150MG Oral Tablet 10/02/2016 - 10/03/2016 Pro vider: MICHAEL KO Diagnosis: One tablet daily Last Documented On 7 2:48PM By MICHAEL KO ; [facility] Medications Administered Includes: Administered Medications from this encounter No Administered Medications Recorded Vital Signs Includes: Vital Signs from this encounter Vital Name 12/09/2020 09:57A Blood Pressure Sitting L 122/76 BP Cuff Size Regular Temp-Oral (F) 98.1 Height (in) 67 Weight (lb) 177 Body Mass Index (kg/m2) 27.7 Body Surface Area (m2) 1.9 Last Documented: On 12/09/2020 10:00A M ; [facility] Results Includes: Results [...] 12/09/2020 Last Documented On 1 10:11AM ; [facility] Alcohol use 12/09/2020 Last Documented On 1 10:11AM ; [facility] In monogamous relationship 12/09/2020 Last Documented On 1 10:11AM ; [facility] Not using drugs 12/09/2020 Last Documented On 1 10:11AM ; [facility] Sexually active with 1 partners in the l ast year 12/09/2020 Last Documented On 1 10:11AM ; [facility] Smoking status : Never smoker 12/09/2020 Last Documented On 1 10:11AM ; [facility] Procedures and Surgical History Includes: Procedures from this encounter Procedures Code Diagnosis Performing Provider Service L ocation Service Date low fat diet Last Documented On 1 9:59AM ; [facility] use of tobacco assessment performed 1000F Last Documented On 1 10:01AM ; [facility] review of medications documented 1160F Last Documented On 1 10:01AM ; [facility] Chlamydia trachomatis culture was perfor med Last Documented On 1 9:59AM ; [facility] Neisseria gonorrhea culture was performe d Last Documented On 1 9:59AM ; [facility] Cervical Pap Smear performed Q0091 Last Documented On 1 9:59AM ; [facility] Medical History Includes: Medical History addressed during this encounter Description Last Updated Contraception: Aviane 12/09/2020 Last Documented On 1 10:11AM ; [facility] Last pap smear date 11/27/2019 12/09/2020 Last Documented On 1 10:11AM ; [facility] History of cervical Pap smear 11/27/2019 12/09/2020 Last Documented On 1 10:11AM ; [facility] LMP: 11/24/2020 12/09/2020 Last Documented On 1 10:11AM ; [facility] History of Pap smear done 11/25/201811/27 Last Documented On 1 10:11AM ; [facility] No recent change in medical history 11/27 Last Documented On 1 10:11AM ; [facility] Result: normal 12/09/2020 Last Documented On 1 10:11AM ; [facility] Sexually active 12/09/2020 Last Documented On 1 10:11AM ; [facility] Family History Includes: Family History addressed during [...] WELL WOMAN - ESTABLISHED PT MICHAEL CHRISTIANSON [facility] 12/10/19 21 9:54AM 10:12AM Normal Female Exam Insurance Includes: Active Insurance Policies Plan Name Member ID Group # Subscriber Relationship Effect linda Dates 1 - [facility] [id number] PATRICA LAZO Self Clinical Notes Includes: Clinical Notes from this encounter No Clinical Notes Recorded
--- OUTSIDE RECORDS SUMMARY | 2024-08-22 10:46 | XMS_ITS ---
Care Plan - [facility] Created on: August 22, 2024 PATRICA LAZO : 2000 Sex: Female Author Organization [facility] Address [address] [place] [address] Phone Care Team Providers Care Tire Balancer Name Role Phone TYSHAWN CROSS Primary Care Provider [phone] REYNA RONQUILLO MD Unavailable [phone]
--- OUTSIDE RECORDS SUMMARY | 2024-08-22 10:46 | XMS_ITS | Referral Summary ---
Author Organization [facility] Address [address] [place] [id number] Care Team Providers Care Traffic Chief Name Role Phone Unknown, Rodonfjosé miguel Primary Care Provider Unavail able Social History Tobacco Use Types Packs/Day Years Used Date Smoking Tobacco: Never Assessed Personal Safety Answer Date Recorded Getting School Help Needed Not on file 07/31 Comments Unknown Sex and Gender Information Value Date Recorded Sex Assigned at Not on file Legal Sex Female 10:33 AM [employer] Gender Identity Not on file Sexual Orientation Not on file Plan of Treatment Not on file Care Teams Traffic Chief Relationship Specialty Start Date End Date Unknown, [place] PCP - General 09/05/22
--- OUTSIDE RECORDS SUMMARY | 2024-08-22 10:46 | XMS_ITS | Clinical Summary ---
Author Organization [facility] Address [address] [place] [address] Care Team Providers Care Md Allergy Immunology Name Role Phone Unavailable Primary Care Provider Unavailabl e Source Comments [facility],non-owned Affiliates and Associated Physician Practices is amultiple site organization consisting of ambulatory clinics and hospital sitesin [place], [place], [place] and [place]. This disclosure is being madepursuant to the Care Everywhere program and may not contain all information available regarding this patient. Last updated 18.[facility] Allergies No known active allergies Social History Tobacco Use Types Packs/Day Years Used Date Smoking Tobacco: Never Assessed Sex and Gender Information Value Date Recorded Sex Assigned at Not on file Gender Identity Not on file Sexual Orientation Not on file Plan of Treatment Health Maintenance Due Date Last Done Comments PAP SMEAR 2000 HIV SCREENING 2013 HPV VACCINE (1 - 3-dose series) 2013 HEPATITIS C SCREENING 06/12/2016 DTAP/TDAP/TD VACCINES (1 - Tdap) 2017 HEPATITIS B VACCINE (1 of 3 - 19+ 3-dose series) 2017 COVID-19 VACCINE ( - 2023-2 5 season) 2024 INFLUENZA VACCINE (#1) 2024 DEPRESSION SCREENING 07/30/2024 ZOSTER VACCINE (1 of 2) 2048 HIB VACCINE Aged Out No longer eligi ble based on patient's age to complete this topic MENINGOCOCCAL (Group B) VACCINE Aged Out No longer eligible based on patient's age to complete this topic MENINGOCOCCAL VACCINE Aged Out No ivette adan eligible based on patient's age to complete this topic PNEUMOCOCCAL VACCINE Aged Out No long er eligible based on patient's age to complete this topic
[2024-08-22 10:49] LABS: EDSTREPNEGPOS1 Negative (Negative)
== END 2024-08-22 11:11 | disposition home or self-care (01) ==
PROVIDERS: Emergency Provider Registered Nurse; PCP Nurse Practitioner
DX: J03.90 Acute tonsillitis, unspecified (principal); F17.290 Nicotine dependence, other tobacco product, uncomplicated
CPT/HCPCS: 87081; 87880; 99203; G0463